=== PATIENT | female | born 1945 | race African-American/Black ===

== ENCOUNTER 2016-09-17 12:34 | Observation (INO) | payer OTHER, MEDICAID ==
--- NOTE | 2016-09-17 13:42 | DR.H&P ---
H&P - History & Physical for Day of: H&P Date: 09/17/16 - Chief Complaint Chief Complaint: MASS IN RIGHT GROIN - Allergies Allergies/Adverse Reactions: Allergies Allergy/AdvReac Type Severity Reaction Status Date / Time No Known Drug Allergy Allergy Verified 08/04/12 14:25 - History of Present Illness History of Present Illness: 71BF DIRECT ADMIT FROM DR WILBURN OFFICE WITH CO RIGHT LOWER ABD/GROIN MASS THE SIZE OF MELON THAT IS FIRM TENDER. PT STATES MASS HAS GOTTEN MUCH LARGER OVER LAST FEW WEEKS AND SHE HAS NOT REVEALED TO MD OR FAMILY UNTIL TODAY. PT IS MORBIDLY OBESE WITH PMH OF HTN, OA, DM, CHF, COPD. PLAN TO ADMIT FOR LABS, CT ABD PELVIS, UA EKG CHEST XRAY - Past Medical History Past Medical History: Arthritis, COPD, GERD, Hypertension - Family History Family Medical History: Cancer, Hypertension - Social History Does patient currently use any type of tobacco product: No Have you used tobacco products in the last 12 months: No Type of Tobacco Use: None Does any household member use tobacco: No Alcohol Use: None Drug Use: None - Review of Systems Constitutional: Weakness ENT: No Symptoms Reported Respiratory: SOB with Excertion Cardiovascular: Edema Gastrointestinal: Abdominal Pain, Other (RIGHT INGUINAL MASS) Musculoskeletal: Back Pain, Leg Pain Skin: No Symptoms Reported Neurological: No Symptoms Reported - Physical Exam Vital Signs: Blood Pressure [Right Arm] 139/83 Blood Pressure [Left Arm] 133/86 Blood Pressure 141/90 Oriented: Normal Eyes: Normal Ear: Normal Nose: Normal Throat: Normal Respiratory: RLL Diminished, LLL Diminished Cardiovascular: Normal : Normal Auscultation: Bowel Sounds: Normal Palpation: Other (RIGHT INGUINAL MASS FIRM, ~15CM WIDTH) Tenderness: RLQ Skin: Decreased Turgur Musculoskeletal: Knee, Back:Lumbar, Motor Deficit (BILATERAL LOWER EXTREMITY WEAKNESS) Affect: Anxious Speech Pattern: Clear, Appropriate - Assessment/Plan (1) Mass of right inguinal region Status: Acute Plan: ADMIT, ADMISSION LABS CBC CMP UA/UC, BLOOD CULTURES. CXR, CT ABD PELVIS. EKG, RESUME HOME MEDS (2) GERD (gastroesophageal reflux disease) Qualifiers: Esophagitis presence: E Status: Acute (3) Arthritis Status: Acute (4) Hypertension Qualifiers: Hypertension type: H Status: Chronic
[2016-09-17] MEDS: NS 1000 ML 1,000 ML IV SCH (15:57)
[2016-09-17 16:11] LABS: BASOPHILS % (AUTO) 0.9 % (0.2-1.0); EOSINOPHILS # (AUTO) 0.1 x10^3/uL (0.0-0.2); EOSINOPHILS % (AUTO) 2.2 % (0.9-2.9); HEMATOCRIT 37.9 % (36.0-47.0); HEMOGLOBIN 13.2 g/dL (12.0-16.0); LYMPHOCYTES # (AUTO) 1.4 X10^3/uL (1.3-2.9); LYMPHOCYTES % (AUTO) 29.5 % (21.0-51.0); MEAN CORPUSCULAR HEMOGLOBIN 30.2 pg (27.0-34.0); MEAN CORPUSCULAR HGB CONC 34.8 g/dL (33.0-35.0); MEAN CORPUSCULAR VOLUME 86.7 fL (80.0-100.0); MONOCYTES # (AUTO) 0.4 x10^3/uL (0.3-0.8); MONOCYTES % (AUTO) 8.9 % (0.0-13.0); NEUTROPHILS # (AUTO) 2.8 x10^3/uL (2.2-4.8); NEUTROPHILS % (AUTO) 58.5 % (42.0-75.0); PLATELET COUNT 229 X10^3/uL (150.0-450.0); RED BLOOD COUNT 4.38 X10^6/uL (3.5-5.4); RED CELL DISTRIBUTION WIDTH 14.1 % (11.6-16.5); WHITE BLOOD COUNT 4.8 X10^3/uL (3.6-10.0)
[2016-09-17 16:26] LABS: ALANINE AMINOTRANSFERASE 19 Units/L (12-78); ALBUMIN 3.4 g/dL (3.4-5.0); ALKALINE PHOSPHATASE 84 Units/L (46-116); ASPARTATE AMINO TRANSFERASE 18 Units/L (15-37); BLOOD UREA NITROGEN 20 mg/dL (7-18); CALCIUM 8.9 mg/dL (8.5-10.1); CARBON DIOXIDE 30.1 mmol/L (21-32); CHLORIDE 105 mmol/L (98-107); GLUCOSE 88 mg/dL (65-99); SODIUM 144 mmol/L (136-145); TOTAL PROTEIN 8.3 g/dL (6.4-8.2); eGFR BLACK RACES 41 (>60); eGFR NON BLACK RACES 34 (>60)
[2016-09-17] MEDS ORDERED: K-DUR TAB 20 MEQ PO PRN (17:20)
[2016-09-17] MEDS ORDERED: POTASSIUM CHLORIDE LIQ 20 MEQ UDC PO PRN (17:20)
[2016-09-17] MEDS ORDERED: K-LYTE EFFERVESCENT PO PRN (17:20)
--- NOTE | 2016-09-17 21:55 | CT ---
CT ABDOMEN AND PELVIS WITH ORAL CONTRAST CLINICAL HISTORY: 71-year-old female with complaints of right groin mass. COMPARISON: CT abdomen and pelvis August 04, 2012. TECHNIQUE: Multiple axial CT images of the abdomen and pelvis were obtained following the administra tion of oral contrast. No intravenous contrast was administered. The images were reformatted in th e sagittal and coronal planes. FINDINGS: Note: There is significant degradation of the study secondary to beam hardening and streak artifact due to patient's extremely large body habitus (morbidly obese, greater than 4 lb). Additionally, pat ient was unable to remain still during the scan. The lung bases are clear without pulmonary nodules, masses, or pleural fluid collections. The infer ior imaged heart is normal in size and there is no pericardial effusion. Redemonstration of large complex cystic lesion within the dome of the right lobe of the liver now me asuring 8.1 x 7.4 cm in greatest axial dimensions. Cholelithiasis with no gross evidence of cholecys titis pancreas and spleen appear unremarkable. The adrenal glands and kidneys are normal in appearance for a study without IV contrast. The ureter s run in an unobstructed course to a well distended urinary bladder. The uterus is anteverted and normal in size. The ovaries, vagina and perineum are within normal garcia its. Oral contrast reaches the distal ileum. The bowel is without obstruction or gross inflammation and t here is no gross free fluid or free air within the peritoneal cavity. Appendix is normal. There are no pathologically enlarged lymph nodes in the abdomen or pelvis. The osseous structures are intact without fracture or malalignment. Anterior thigh is not imaged. Significant degenerative change of the lower lumbar spine from L4-S1. IMPRESSION: 1. Significant study degradation secondary to patient body habitus and motion. 2. No imaging of anterior thigh to assess for questionable mass. 3. Cholelithiasis without gross CT evidence of cholecystitis. 4. Normal appearing appendix grossly. 5. No gross acute intra-abdominal or intrapelvic process. Reported By:
--- NOTE | 2016-09-17 22:06 | RAD ---
EXAM: Chest X-ray INDICATION: CHF COMPARISION: Prior exam from October 28, 2013 TECHNIQUE: Single view FINDINGS: There is parenchymal consolidation in the left lung base and right parahilar region.. No pleural eff usion or pneumothorax. The cardiac silhouette is mildly enlarged and there central vascular congesti on. The regional skeleton is intact. IMPRESSION: There is mild cardiomegaly and central vascular congestion. Areas of consolidation are seen in the r ight parahilar lung parenchyma and in the left lung base. Followup exam is recommended to ensure res olution. Reported By:
[2016-09-17] MEDS: MILK OF MAGNESIA PO SCH (22:16)
[2016-09-17] MEDS: COLACE CAP 100 MG PO SCH (22:16)
[2016-09-17] MEDS ORDERED: NORCO 5/325 MG TAB PO PRN (23:23)
[2016-09-18 00:16] VITALS: BMI 54.6
[2016-09-18] MEDS ORDERED: ZOFRAN INJ 4 MG VIAL IVP PRN (03:42)
[2016-09-18 04:35] LABS: BILIRUBIN,URINE 1+ (NEGATIVE); BLOOD/HEMOGLOBIN,URINE 1+ (NEGATIVE); GLUCOSE, URINE NEGATIVE (NEGATIVE); KETONES,URINE NEGATIVE (NEGATIVE); LEUKOCYTE ESTERASE ,URINE 1+ (NEGATIVE); NITRITES,URINE POSITIVE (NEGATIVE); PROTEIN,URINE 2+ (NEGATIVE); UROBILINOGEN,URINE 3+ (NORMAL)
[2016-09-18 04:52] LABS: APPEARANCE,URINE HAZY (CLEAR); COLOR,URINE AMBER (YELLOW); RBC,URINE NONE SEEN /HPF (NEGATIVE)
[2016-09-18 04:53] LABS: BACTERIA,URINE 1+ /HPF (NEGATIVE); MUCUS,URINE MANY /HPF (NEGATIVE); SQUAMOUS EPITHELIAL CELL,UR MODERATE /HPF (NEGATIVE)
[2016-09-18] MEDS ORDERED: PHENERGAN INJ 25 MG IV PRN (07:38)
[2016-09-18] MEDS: NS 1000 ML 1,000 ML IV SCH ×2 (08:22→21:36)
--- NOTE | 2016-09-18 13:22 | US ---
HISTORY: Mass right inner thigh and x2 years no pain. Study: Targeted ultrasound of the right thigh. Comparison: None. Findings: Targeted ultrasound of the right inner thigh at the patient's area of concern demonstrates marked so ft tissue edema. No abnormal mass is appreciated. No pathologic lymphadenopathy. The visualized vasc ulature appears normal. IMPRESSION: Marked soft tissue edema without obvious mass. Reported By:
[2016-09-18] MEDS: MILK OF MAGNESIA PO SCH (21:33)
[2016-09-18] MEDS: COLACE CAP 100 MG PO SCH (21:33)
[2016-09-19 05:43] LABS: BASOPHILS % (AUTO) 0.7 % (0.2-1.0); EOSINOPHILS # (AUTO) 0.2 x10^3/uL (0.0-0.2); EOSINOPHILS % (AUTO) 4.4 % (0.9-2.9); HEMATOCRIT 34.7 % (36.0-47.0); LYMPHOCYTES # (AUTO) 1.1 X10^3/uL (1.3-2.9); LYMPHOCYTES % (AUTO) 25.6 % (21.0-51.0); MEAN CORPUSCULAR HEMOGLOBIN 30.1 pg (27.0-34.0); MEAN CORPUSCULAR HGB CONC 34.7 g/dL (33.0-35.0); MEAN CORPUSCULAR VOLUME 86.9 fL (80.0-100.0); MEAN PLATELET VOLUME 9.3 fL (7.4-11.0); MONOCYTES # (AUTO) 0.4 x10^3/uL (0.3-0.8); MONOCYTES % (AUTO) 8.5 % (0.0-13.0); NEUTROPHILS # (AUTO) 2.5 x10^3/uL (2.2-4.8); NEUTROPHILS % (AUTO) 60.8 % (42.0-75.0); PLATELET COUNT 192 X10^3/uL (150.0-450.0); RED BLOOD COUNT 3.99 X10^6/uL (3.5-5.4); RED CELL DISTRIBUTION WIDTH 14.2 % (11.6-16.5); WHITE BLOOD COUNT 4.1 X10^3/uL (3.6-10.0)
[2016-09-19 05:51] LABS: BLOOD UREA NITROGEN 24 mg/dL (7-18); CALCIUM 8.7 mg/dL (8.5-10.1); CARBON DIOXIDE 27.7 mmol/L (21-32); CHLORIDE 109 mmol/L (98-107); CREATININE 1.44 mg/dL (0.55-1.02); GLUCOSE 91 mg/dL (65-99); SODIUM 144 mmol/L (136-145); eGFR BLACK RACES 46 (>60); eGFR NON BLACK RACES 38 (>60)
[2016-09-19] MEDS: NS 1000 ML 1,000 ML IV SCH (10:28)
[2016-09-19] MEDS ORDERED: NORCO 10/325 TAB PO PRN (10:58)
[2016-09-19] MEDS ORDERED: PHENERGAN TAB 25 MG PO PRN (10:58)
[2016-09-19] MEDS ORDERED: PATIENT'S HOME MEDICATION (Sertraline Hcl [Zoloft 25 Mg] 25 MG) PO SCH (11:00)
[2016-09-19] MEDS ORDERED: OMEPRAZOLE 10 MG PO SCH (11:00)
[2016-09-19 12:25] VITALS: BP 125/61
[2016-09-20] MEDS ORDERED: ZOLOFT PO SCH (09:00)
[2016-09-20] MEDS ORDERED: HYZAAR 50/12.5 MG PO SCH (09:00)
[2016-09-20] MEDS ORDERED: PriLOSEC PO SCH (09:00)
== END 2016-09-19 16:00 | disposition home or self-care (01) ==
LOC: UNDOADMOB 12:34 → MED/SURG 12:34
PROVIDERS: ADMIT Internal Medicine; ATTEND Internal Medicine
DX: R22.41 Localized swelling, mass and lump, right lower limb (principal); K80.80 Other cholelithiasis without obstruction; I10 Essential (primary) hypertension; E11.9 Type 2 diabetes mellitus without complications; I50.9 Heart failure, unspecified; J44.9 Chronic obstructive pulmonary disease, unspecified; K21.9 Gastro-esophageal reflux disease without esophagitis; M13.89 Other specified arthritis, multiple sites; I51.7 Cardiomegaly; R94.31 Abnormal electrocardiogram [ECG] [EKG]; R60.0 Localized edema; B96.29 Other Escherichia coli [E. coli] as the cause of diseases classified elsewhere; R94.8 Abnormal results of function studies of other organs and systems; E87.6 Hypokalemia
CPT/HCPCS: 36415; 71010; 74176; 76881; 80048; 80053; 81001; 84132; 85025; 87040; 87086; 87088; 87186; 93005; 93010; A4222; G0378; J2405; J2550

== ENCOUNTER 2017-06-02 11:51 | Inpatient (IN) | payer OTHER, MEDICAID ==
[2017-06-02 14:20] LABS: BASOPHILS % (AUTO) 0.5 % (0.2-1.0); EOSINOPHILS % (AUTO) 0.8 % (0.9-2.9); HEMATOCRIT 38.1 % (36.0-47.0); LYMPHOCYTES # (AUTO) 0.7 X10^3/uL (1.3-2.9); LYMPHOCYTES % (AUTO) 15.8 % (21.0-51.0); MEAN CORPUSCULAR HEMOGLOBIN 29.8 pg (27.0-34.0); MEAN CORPUSCULAR HGB CONC 34.2 g/dL (33.0-35.0); MEAN CORPUSCULAR VOLUME 87.3 fL (80.0-100.0); MEAN PLATELET VOLUME 9.4 fL (7.4-11.0); MONOCYTES # (AUTO) 0.5 x10^3/uL (0.3-0.8); MONOCYTES % (AUTO) 11.4 % (0.0-13.0); NEUTROPHILS # (AUTO) 3.2 x10^3/uL (2.2-4.8); NEUTROPHILS % (AUTO) 71.5 % (42.0-75.0); PLATELET COUNT 218 X10^3/uL (150.0-450.0); RED BLOOD COUNT 4.36 X10^6/uL (3.5-5.4); RED CELL DISTRIBUTION WIDTH 15.6 % (11.6-16.5); WHITE BLOOD COUNT 4.5 X10^3/uL (3.6-10.0)
[2017-06-02 14:37] LABS: BLOOD UREA NITROGEN 17 mg/dL (7-18); CALCIUM 8.6 mg/dL (8.5-10.1); CARBON DIOXIDE 27.8 mmol/L (21-32); CHLORIDE 104 mmol/L (98-107); CREATININE 1.24 mg/dL (0.55-1.02); SODIUM 143 mmol/L (136-145); TROPONIN I < 0.02 ng/mL (0-1.5); eGFR BLACK RACES 55 (>60); eGFR NON BLACK RACES 45 (>60)
[2017-06-02 14:42] LABS: ALANINE AMINOTRANSFERASE 13 Units/L (12-78); ALKALINE PHOSPHATASE 82 Units/L (46-116); ASPARTATE AMINO TRANSFERASE 15 Units/L (15-37); CKMB % 0.8 % (<4); COR CA(FOR HYPOALB) 9.4 mg/dL (8.5-10.1); CREATINE KINASE 125 Units/L (26-192); CREATINE KINASE MB < 1.0 ng/mL (0-4.0); MAGNESIUM 1.6 mg/dL (1.7-2.9); TOTAL PROTEIN 7.6 g/dL (6.4-8.2)
[2017-06-02] MEDS ORDERED: HEPARIN SODIUM INJ 5000 UNITS ONE (15:07)
[2017-06-02] MEDS: CORDARONE TAB 200 MG PO SCH ×2 (15:17→18:09)
[2017-06-02] MEDS: HEPARIN SODIUM IN D5W 25,000 UNITS/500 ML BAG IV PRN (15:19)
[2017-06-02] MEDS: COREG TAB 6.25 MG PO SCH ×2 (15:20→20:16)
--- NOTE | 2017-06-02 16:05 | RAD ---
AP Chest Indication: New onset atrial fibrillation Comparison: 09/17/16 Findings: Trachea is midline. Heart size enlarged. There is increased prominence of the central pulmonary vascu lature and interstitium consistent mild interstitial edema. No dense airspace consolidation, large ef fusion or pneumothorax . No acute osseous abnormality. IMPRESSION: Cardiomegaly with increased interstitial opacities most consistent with interstitial edema/CHF. Reported By:
[2017-06-02 17:03] VITALS: BMI 56.5
[2017-06-02 17:36] LABS: BILIRUBIN,URINE 1+ (NEGATIVE); BLOOD/HEMOGLOBIN,URINE NEGATIVE (NEGATIVE); GLUCOSE, URINE NEGATIVE (NEGATIVE); KETONES,URINE NEGATIVE (NEGATIVE); LEUKOCYTE ESTERASE ,URINE 2+ (NEGATIVE); NITRITES,URINE NEGATIVE (NEGATIVE); PROTEIN,URINE NEGATIVE (NEGATIVE); UROBILINOGEN,URINE 3+ (NORMAL)
[2017-06-02 17:41] LABS: APPEARANCE,URINE HAZY (CLEAR); BACTERIA,URINE 1+ /HPF (NEGATIVE); COLOR,URINE YELLOW (YELLOW); RBC,URINE 0-2 /HPF (NONE SEEN); SQUAMOUS EPITHELIAL CELL,UR FEW /HPF (NEGATIVE)
[2017-06-02] MEDS ORDERED: K-RIDER 10 MEQ/NS 100 ML 10 MEQ/100 ML BAG IV PRN (18:03)
[2017-06-02] MEDS ORDERED: MAGNESIUM SULFATE 1 GM/100 mL PREMIX 1 GM/100 ML BAG IV PRN (18:03)
[2017-06-02] MEDS ORDERED: POTASSIUM CHL 60 MEQ/NS 0.45% 500 ML IV PRN (18:03)
[2017-06-02] MEDS ORDERED: MAG-OX TAB PO PRN (18:03)
[2017-06-02] MEDS ORDERED: POTASSIUM CHLORIDE LIQ 20 MEQ UDC PO PRN (18:03)
[2017-06-02] MEDS ORDERED: POTASSIUM CHL 40 MEQ/NS 0.45% 500 ML IV PRN (18:03)
[2017-06-02] MEDS ORDERED: K-LYTE EFFERVESCENT PO PRN (18:03)
--- NOTE | 2017-06-02 18:41 | CT ---
CTA chest for pulmonary thromboembolism protocol. Indication: New onset atrial fibrillation. Technique: 3 mm axial images with coronal and sagittal reformatted images of the thorax after IV cont rast administration. Axial, coronal and sagittal MIPS imaging of the pulmonary arteries was performed . Findings: Thyroid gland is unremarkable. Heart size is mildly enlarged without pericardial effusion. No definit e filling defect within the left atrium to suggest thrombus. Mild coronary artery atherosclerotic dis ease. Thoracic aorta is normal in caliber and contour with mild calcified atherosclerotic disease. Th e pulmonary artery is dilated. There is no filling defect identified within the pulmonary arteries ho wever states subsegmental pulmonary arteries are not adequately opacified for exclusion of PTE. There is mild central peribronchial thickening and very mild interstitial opacities centrally likely representing mild bronchitis and/or interstitial edema for which clinical correlation is needed. Kandice ining lungs are clear. No pleural effusion or pneumothorax. Central airways are clear. No acute osseo us abnormality. Large hypoattenuating lesion within the right hepatic dome unchanged from prior exami nation likely representing a cyst. Impression: Cardiomegaly with mild central peribronchial thickening and interstitial opacities represents either mild interstitial edema or bronchitis for which clinical correlation is needed. No bronchopneumonia p leural effusion. Pulmonary arterial hypertension, no PTE identified however subsegmental branches of the pulmonary art eries are not adequately opacified for exclusion. Stable large round hypoattenuating lesion within the right hepatic dome is most consistent with a cys t. Reported By:
[2017-06-02 20:11] LABS: CKMB % 0.9 % (<4); CREATINE KINASE 118 Units/L (26-192); CREATINE KINASE MB < 1.0 ng/mL (0-4.0); TROPONIN I < 0.02 ng/mL (0-1.5)
[2017-06-02] MEDS ORDERED: NS 500 ML IV 500 ML IV ONE (20:56)
[2017-06-02] MEDS: NORCO 10/325 TAB PO PRN (21:23)
[2017-06-03 02:50] LABS: CKMB % 0.9 % (<4); CREATINE KINASE 106 Units/L (26-192); CREATINE KINASE MB < 1.0 ng/mL (0-4.0); TROPONIN I < 0.02 ng/mL (0-1.5)
[2017-06-03] MEDS: CORDARONE TAB 200 MG PO SCH ×4 (06:01→19:07)
[2017-06-03] MEDS: HEPARIN SODIUM IN D5W 25,000 UNITS/500 ML BAG IV PRN (06:03)
[2017-06-03 06:18] LABS: BASOPHILS % (AUTO) 0.8 % (0.2-1.0); EOSINOPHILS # (AUTO) 0.1 x10^3/uL (0.0-0.2); EOSINOPHILS % (AUTO) 2.9 % (0.9-2.9); HEMATOCRIT 34.8 % (36.0-47.0); HEMOGLOBIN 12.1 g/dL (12.0-16.0); LYMPHOCYTES # (AUTO) 1.3 X10^3/uL (1.3-2.9); LYMPHOCYTES % (AUTO) 33.7 % (21.0-51.0); MEAN CORPUSCULAR HEMOGLOBIN 30.1 pg (27.0-34.0); MEAN CORPUSCULAR HGB CONC 34.6 g/dL (33.0-35.0); MEAN CORPUSCULAR VOLUME 86.9 fL (80.0-100.0); MEAN PLATELET VOLUME 10.4 fL (7.4-11.0); MONOCYTES # (AUTO) 0.4 x10^3/uL (0.3-0.8); MONOCYTES % (AUTO) 11.9 % (0.0-13.0); NEUTROPHILS # (AUTO) 1.9 x10^3/uL (2.2-4.8); NEUTROPHILS % (AUTO) 50.7 % (42.0-75.0); PLATELET COUNT 161 X10^3/uL (150.0-450.0); RED BLOOD COUNT 4.01 X10^6/uL (3.5-5.4); RED CELL DISTRIBUTION WIDTH 15.6 % (11.6-16.5); WHITE BLOOD COUNT 3.7 X10^3/uL (3.6-10.0)
[2017-06-03 06:41] LABS: ALANINE AMINOTRANSFERASE 14 Units/L (12-78); ALBUMIN 2.6 g/dL (3.4-5.0); ALKALINE PHOSPHATASE 78 Units/L (46-116); ASPARTATE AMINO TRANSFERASE 15 Units/L (15-37); BLOOD UREA NITROGEN 18 mg/dL (7-18); CALCIUM 8.1 mg/dL (8.5-10.1); CARBON DIOXIDE 26.6 mmol/L (21-32); CHLORIDE 104 mmol/L (98-107); CHOLESTEROL 113 mg/dL (0-200); COR CA(FOR HYPOALB) 9.2 mg/dL (8.5-10.1); CREATININE 1.24 mg/dL (0.55-1.02); HDL CHOLESTEROL 38 mg/dL (40-60); SODIUM 140 mmol/L (136-145); TOTAL PROTEIN 6.9 g/dL (6.4-8.2); TRIGLYCERIDES 51 mg/dL (0-150); eGFR BLACK RACES 55 (>60); eGFR NON BLACK RACES 45 (>60)
[2017-06-03] MEDS: COREG TAB 6.25 MG PO SCH ×2 (08:21→20:47)
[2017-06-03] MEDS ORDERED: PREVNAR 13 IM ONE (09:04)
[2017-06-03] MEDS ORDERED: FLUVIRIN IM ONE (09:04)
--- NOTE | 2017-06-03 13:24 | DR.H&P ---
H&P - History & Physical for Day of: H&P Date: 06/03/17 - Chief Complaint Chief Complaint: weakness, palpitations, shortness of breath - Allergies Allergies/Adverse Reactions: Allergies Allergy/AdvReac Type Severity Reaction Status Date / Time No Known Drug Allergies Allergy Verified 06/02/17 20:23 [NKDA] - History of Present Illness History of Present Illness: 72 BF DIRECT ADMIT FROM DR WILBURN OFFICE WITH CO GENERALIZED WEAKNESS, "FEELS BAD", SHORTNESS OF BREATH, NAUSEA. PT HAD IRREGULAR HEART, W/O HX OF AFIB. PT EKG REVEALED NEW ONSET AT FIB WITH RATE 130 'S. PT HAD PMH OF MO, HTN, OA, CAD. PT ADMITTED FOR EVALUATION AND TREATMENT OF NEW ONSET AFIB WITH RVR AND SOB. - Past Medical History Past Medical History: Anxiety, Arthritis, COPD, GERD, Hypertension - Family History Family Medical History: Coronary Artery Disease, Hypertension - Social History Does patient currently use any type of tobacco product: No Have you used tobacco products in the last 12 months: No Type of Tobacco Use: None Alcohol Use: None Drug Use: None - Medications Home Medications: Atorvastatin Calcium 10 mg PO DAILY 06/02/17 [History Confirmed 06/02/17] Sertraline HCl [Zoloft] 50 mg PO DAILY 06/02/17 [History Confirmed 06/02/17] - Review of Systems Constitutional: Weakness, Malaise Eyes: No Symptoms Reported ENT: No Symptoms Reported Respiratory: Shortness of Breath Cardiovascular: Palpitations Gastrointestinal: Nausea Genitourinary: No Symptoms Reported Musculoskeletal: Back Pain, Leg Pain Skin: No Symptoms Reported Neurological: Weakness - Physical Exam Vital Signs: Temperature 97.9 F Pulse Rate [Apical] 86 Respiratory Rate 13 Blood Pressure [Right Arm] 136/85 Blood Pressure [Left Arm] 133/86 Blood Pressure 125/61 O2 Sat by Pulse Oximetry 98 Oriented: Normal Eyes: Normal Ear: Normal Nose: Normal Throat: Normal Respiratory: RLL Diminished, LLL Diminished Cardiovascular: Irregular : Normal Auscultation: Bowel Sounds: Normal Palpation: Normal Tenderness: Normal Skin: Decreased Turgur Musculoskeletal: Right, Left, Knee, Back:Thoracic, Back:Lumbar Psychiatric: Anxiety Speech Pattern: Clear, Appropriate - Assessment/Plan (1) New onset a-fib Status: Acute Plan: ADMIT ICU, SERIAL CARDIAC ENZYMES AND EKG'S. BP CONTROL, HEPARIN DRIP, ANTI- Arrhythmia. SUPPLEMENTAL O2. VERIFY HOME MEDS (2) Hypertension Status: Acute (3) CHF (congestive heart failure) Status: Acute (4) Shortness of breath Status: Acute
[2017-06-03] MEDS ORDERED: XOPENEX 1.25 MG/3 ML NEBULE NEB PRN (14:30)
[2017-06-03] MEDS ORDERED: HEPARIN SODIUM INJ 5000 UNITS IVP ONE (22:42)
[2017-06-03] MEDS ORDERED: MAALOX or MYLANTA PO PRN (22:47)
[2017-06-04] MEDS: HEPARIN SODIUM IN D5W 25,000 UNITS/500 ML BAG IV PRN (00:52)
[2017-06-04 07:01] LABS: BASOPHILS % (AUTO) 0.7 % (0.2-1.0); EOSINOPHILS # (AUTO) 0.2 x10^3/uL (0.0-0.2); EOSINOPHILS % (AUTO) 3.7 % (0.9-2.9); HEMATOCRIT 36.3 % (36.0-47.0); HEMOGLOBIN 12.7 g/dL (12.0-16.0); LYMPHOCYTES # (AUTO) 1.4 X10^3/uL (1.3-2.9); LYMPHOCYTES % (AUTO) 29.9 % (21.0-51.0); MEAN CORPUSCULAR HEMOGLOBIN 30.2 pg (27.0-34.0); MEAN CORPUSCULAR HGB CONC 34.9 g/dL (33.0-35.0); MEAN CORPUSCULAR VOLUME 86.7 fL (80.0-100.0); MEAN PLATELET VOLUME 10.4 fL (7.4-11.0); MONOCYTES # (AUTO) 0.6 x10^3/uL (0.3-0.8); MONOCYTES % (AUTO) 13.5 % (0.0-13.0); NEUTROPHILS # (AUTO) 2.4 x10^3/uL (2.2-4.8); NEUTROPHILS % (AUTO) 52.2 % (42.0-75.0); PLATELET COUNT 195 X10^3/uL (150.0-450.0); RED BLOOD COUNT 4.18 X10^6/uL (3.5-5.4); RED CELL DISTRIBUTION WIDTH 15.3 % (11.6-16.5); WHITE BLOOD COUNT 4.6 X10^3/uL (3.6-10.0)
[2017-06-04 07:17] LABS: ALANINE AMINOTRANSFERASE 12 Units/L (12-78); ALBUMIN 2.9 g/dL (3.4-5.0); ALKALINE PHOSPHATASE 80 Units/L (46-116); ASPARTATE AMINO TRANSFERASE 15 Units/L (15-37); BLOOD UREA NITROGEN 20 mg/dL (7-18); CARBON DIOXIDE 28.3 mmol/L (21-32); CHLORIDE 102 mmol/L (98-107); COR CA(FOR HYPOALB) 8.9 mg/dL (8.5-10.1); SODIUM 140 mmol/L (136-145); TOTAL PROTEIN 7.4 g/dL (6.4-8.2); eGFR BLACK RACES 52 (>60); eGFR NON BLACK RACES 43 (>60)
[2017-06-04] MEDS: COREG TAB 6.25 MG PO SCH (08:35)
[2017-06-04] MEDS: CORDARONE TAB 200 MG PO SCH (08:36)
[2017-06-04] MEDS: NORCO 10/325 TAB PO PRN (13:57)
[2017-06-04 15:21] VITALS: BP 116/75
== END 2017-06-04 15:55 | disposition short-term general hospital (02) | DRG 310 ==
LOC: ICU 11:51
PROVIDERS: ADMIT Internal Medicine; ATTEND Internal Medicine
DX: I48.91 Unspecified atrial fibrillation (principal); R07.89 Other chest pain; R06.02 Shortness of breath; K21.9 Gastro-esophageal reflux disease without esophagitis; I10 Essential (primary) hypertension; I25.10 Atherosclerotic heart disease of native coronary artery without angina pectoris; I50.9 Heart failure, unspecified; E78.2 Mixed hyperlipidemia; M19.90 Unspecified osteoarthritis, unspecified site; E66.8 Other obesity
CPT/HCPCS: 36415; 71045; 71275; 80053; 80061; 81001; 82550; 82553; 83735; 84484; 85025; 85610; 85730; 93005; 93010; A4216; A4222; J1644

== ENCOUNTER → 2017-07-26 | Outpatient (CLI) | payer OTHER, MEDICAID ==
--- NOTE | 2017-07-26 15:04 | RAD ---
HISTORY: Osteoarthritis of the knee Study: Right knee: Three views Comparison: None Findings: Moderate to moderately severe joint space narrowing is noted in the medial compartment with mild late rally. Mild spurring is noted medially and laterally. Moderately severe patellofemoral joint degene ration is noted. No acute bony or joint abnormalities are identified. IMPRESSION: 1. Degenerative change in the right knee as described above. 2. No acute bony abnormalities are identified. Reported By:
--- NOTE | 2017-07-26 15:06 | RAD ---
HISTORY: Osteoarthritis of knee Study: Left knee: Three views Comparison: None. Findings: Moderate joint space narrowing is noted in the medial compartment. Mild sclerosis is noted involving the medial femoral condyle and medial tibial plateau. Small osteochondral defects are present invol ving the medial compartment. Minute joint space narrowing is noted laterally. Lygm-[id number]-flplzowh spur ring is noted medially with mild laterally. Moderate to moderately severe patellofemoral joint degen eration is noted IMPRESSION: 1. Degenerative change in the left knee as described above. 2. No acute bony abnormalities are identified. Reported By:
--- NOTE | 2017-07-26 15:08 | RAD ---
HISTORY: Low back pain Study: AP and lateral lumbar spine Comparison: None Findings: Five lumbar type vertebra present. [id number] osteopenia is present. Mild facet arthropathy i s noted throughout with moderate to moderately severe at L4/L5 and L5/S1. The lateral view demonstra lorenza 4-5 mm of spondylolisthesis of L4 on L5 and L5 on S1. Vacuum disc formation and moderate disc sp richard narrowing is noted at L4/L5 with moderate to moderately severe disc space narrowing at L5/S1. Mi nimal anterior spurring is noted at a few levels. IMPRESSION: 1. Lumbar spondylosis as described above. 2. No acute bony abnormalities are identified. Reported By:
== END ==
LOC: RAD 12:55
PROVIDERS: ATTEND Internal Medicine
DX: M51.36 Other intervertebral disc degeneration, lumbar region (principal); M17.0 Bilateral primary osteoarthritis of knee; M47.896 Other spondylosis, lumbar region
CPT/HCPCS: 72100; 73560

== ENCOUNTER 2019-12-03 09:49 | Observation (INO) ==
[2019-12-03 10:13] VITALS: BMI 49.9
[2019-12-03 10:28] LABS: BASOPHILS % (AUTO) 0.2 % (0.2-1.0); EOSINOPHILS % (AUTO) 0.5 % (0.9-2.9); HEMATOCRIT 38.7 % (36.0-47.0); HEMOGLOBIN 13.3 g/dL (12.0-16.0); LYMPHOCYTES # (AUTO) 0.4 X10^3/uL (1.3-2.9); LYMPHOCYTES % (AUTO) 6.3 % (21.0-51.0); MEAN CORPUSCULAR HGB CONC 34.3 g/dL (33.0-35.0); MEAN CORPUSCULAR VOLUME 90.5 fL (80.0-100.0); MEAN PLATELET VOLUME 8.7 fL (7.4-11.0); MONOCYTES # (AUTO) 0.1 x10^3/uL (0.3-0.8); MONOCYTES % (AUTO) 1.3 % (0.0-13.0); NEUTROPHILS # (AUTO) 5.2 x10^3/uL (2.2-4.8); NEUTROPHILS % (AUTO) 91.7 % (42.0-75.0); PLATELET COUNT 224 X10^3/uL (150.0-450.0); RED BLOOD COUNT 4.28 X10^6/uL (3.5-5.4); RED CELL DISTRIBUTION WIDTH 14.7 % (11.6-16.5); WHITE BLOOD COUNT 5.6 X10^3/uL (3.6-10.0)
--- NOTE | 2019-12-03 10:32 | ED.ABDFE ---
HPI Time Seen Time Seen by Provider: 12/03/19 10:00 HPI Comment HPI Comment: PATIENT IS 74 YR OLD FEMALE IN ER WITH ABDOMINAL PAIN AND CONSTIPATION FOR SEVERAL HOURS. MOM DID NOT HELP CONSTIPATION. SHARP ABDOMINAL PAIN 6/10 RADIATING TO THE BACK. PATIENT IS NAUSEATED AND VOMITING. NO FEVER OR DYSURIA. SYMPTOMS GETTING WORSE. SMALL HARD BP TODAY. Complaint Doctors Chief Complaint Comments: ABDOMINAL PAIN, SHARP, 6/10 RADIATING TO THE BACK AND CONSTIPATION COVID-19 Coronavirus risk:travel/contact w/high risk person: No Has patient experienced Coronavirus symptoms: No Reviewed Nurses Notes Review: Yes Source History Provided: Parent Mode of arrival Mode of Arrival: EMS Timing Came on: Suddenly Duration Since Onset: Constant Location Location: Diffuse Severity Severity: Moderate Quality Quality: Sharp Context History of: None Modifying factors Worsening Factors: Movement Improving Factors: Lying Still Associated signs and symptoms Associated Signs and Symptoms: Nausea and Constipation PMH PMH Past Medical History: Anxiety, Arthritis, COPD, GERD and Hypertension Past Surgical History: No Family History Family Medical History: Coronary Artery Disease and Hypertension Social History Do you use any recreational Drugs:: No ROS Review of Systems Constitutional: No Symptoms Reported, See HPI, Weakness and Fatigue Eyes: No Symptoms Reported and See HPI; negative Blurred Vision and Diplopia ENTM: No Symptoms Reported; negative Nose Discharge and Nose Congestion Respiratoy: No Symptoms Reported and See HPI; negative Moist Cough, Short of Breath and Wheezing Cardiovascular: No Symptoms Reported and See HPI; negative Chest Pain Gastrointestinal/Abdominal: See HPI, Abdominal Pain, Constipation, Nausea and Vomiting Genitourinary: See HPI and Other (DECREASE URINE OUTPUT.); negative Dysuria and Hematuria Neurological: See HPI and Weakness; negative Headache and Dizziness Musculoskeletal: See HPI and Back Pain; negative Muscle Pain Integumentary: See HPI and Dryness; negative Change in Color, Rash and Juandice Hematologic/Lymphatic: No Symptoms Reported, See HPI and Easy Bruising; negative Swollen Glands Endocrine: No Symptoms Reported and See HPI; negative Increased Thirst, Increased Urine and Decreased Appetite Psychiatric: No Symptoms Reported and See HPI All Other Systems: Reviewed and Negative PE Vital Signs Vitals: Temperature 97.9 F Pulse Rate [Right Radial] 72 Pulse Rate 77 Respiratory Rate 18 Blood Pressure [Left Arm] 97/64 Blood Pressure 115/73 O2 Sat by Pulse Oximetry 97 General Limitations: No Limitations General Appearance: Alert and In No Apparent Distress Head Head Exam: Normal Inspection and Atraumatic Eyes Eye exam: Normal Appearance and PERRL; negative Scleral Icterus and Conjunctival Injection ENT ENT Exam: Normal Exam, Normal Oropharynx, Normal External Ear Exam and TM's Normal Bilaterally Neck Neck Exam: Normal Inspection and Trachea Midline; negative Tenderness and Lymphadenopathy Chest Chest Inspection: Normal Inspection and Symmetric Chest Wall Rise; negative Tenderness Respiratory Respiratory Exam: Normal Lung Sounds Bilat; negative Accessory Muscle Use, Chest Wall Tenderness and Respiratory Distress Respiratory Exam: Bilateral: Rhonchi and Lower: Rhonchi Cardiovascular Cardiovascular Exam: Regular Rate, Normal Rhythm and Normal Heart Sounds; negative Systolic Murmur and Diastolic Murmur Abdominal Exam Abdominal Exam: Normal Bowel Sounds, Soft and Tenderness Abdominal Tenderness: Diffuse and Moderate Rectal Rectal Exam: Deferred Back Back Exam: Normal Inspection; negative (R) CVA Tenderness and (L) CVA Tenderness Extremeties Extremities Exam: Normal Inspection and Normal Capillary Refill External Exam: Female: Deferred : Speculum Exam (Female): Deferred : Bimanual Exam (female): Deferred Neurologic Neurological Exam: Alert and Oriented X3; negative Motor Sensory Deficit Psychiatric Psychiatric Exam: Normal Affect and Normal Mood Skin Skin Exam: Dry MDM Additional Information Obtained From Additional information provided by: Old Records Differential Diagnosis Differential Diagnosis- Considerations may include:: Bowel Obstruction, Cholcystitis, Cholelethiasis, Constipation, Diverticular disease, Gastritus/PUD, Inflammatory BD, Pancreatitis, Urinary tract infection and Urolithiasis COURSE Treatment Treatment: SEE ORDERS. Consultation Consultation Comments: DISCUSSED PATIENT WITH DR. NOBLE. HE WILL ADMIT PATIENT. DISCUSSED PATIENT WITH DR. MARTINI WELL. HE WILL SEE PATIENT ON THE FLOOR. Education/Counseling Education/Counseling: Patient Educated On: Diagnosis ROR Labs Reviewed Laboratory Results Reviewed?: Yes Result Diagrams: 12/04/19 05:50 12/04/19 05:50 Laboratory: WBC 5.6 X10^3/uL (3.6-10.0) 12/03/19 10:24 RBC 4.28 X10^6/uL (3.5-5.4) 12/03/19 10:24 Hgb 13.3 g/dL (12.0-16.0) 12/03/19 10:24 Hct 38.7 % (36.0-47.0) 12/03/19 10:24 MCV 90.5 fL (80.0-100.0) 12/03/19 10:24 MCH 31.0 pg (27.0-34.0) 12/03/19 10:24 MCHC 34.3 g/dL (33.0-35.0) 12/03/19 10:24 RDW 14.7 % (11.6-16.5) 12/03/19 10:24 Plt Count 224 X10^3/uL (150.0-450.0) 12/03/19 10:24 Plt Count Comment Adequate (ADEQUATE) 12/03/19 10:24 MPV 8.7 fL (7.4-11.0) 12/03/19 10:24 Neut % (Auto) 91.7 % (42.0-75.0) H 12/03/19 10:24 Lymph % (Auto) 6.3 % (21.0-51.0) L 12/03/19 10:24 [place] % (Auto) 1.3 % (0.0-13.0) 12/03/19 10:24 Eos % (Auto) 0.5 % (0.9-2.9) L 12/03/19 10:24 Baso % (Auto) 0.2 % (0.2-1.0) 12/03/19 10:24 Neut # (Auto) 5.2 x10^3/uL (2.2-4.8) H 12/03/19 10:24 Lymph # (Auto) 0.4 X10^3/uL (1.3-2.9) L 12/03/19 10:24 [place] # (Auto) 0.1 x10^3/uL (0.3-0.8) L 12/03/19 10:24 Eos # (Auto) 0.0 x10^3/uL (0.0-0.2) 12/03/19 10:24 Baso # (Auto) 0.0 X10^3/uL (0.0-0.1) 12/03/19 10:24 Absolute Nucleated RBC 0.0 /100WBC 12/03/19 10:24 Total Counted 100 12/03/19 10:24 Neutrophils % (Manual) 89 % (39-76) H 12/03/19 10:24 Band Neutrophils % 1 % (0-10) 12/03/19 10:24 Lymphocytes % (Manual) 9 % (13-43) L 12/03/19 10:24 Monocytes % (Manual) 1 % (4-9) L 12/03/19 10:24 Plt Morphology Comment Normal (NORMAL) 12/03/19 10:24 RBC Morphology Normal (NORMAL) 12/03/19 10:24 Sodium 141 mmol/L (136-145) 12/03/19 10:24 Corrected Sodium 142 mmol/L (136-145) 12/03/19 10:24 Potassium 3.3 mmol/L (3.5-5.1) L 12/03/19 10:24 Chloride 106 mmol/L (98-107) 12/03/19 10:24 Carbon Dioxide 29.0 mmol/L (21-32) 12/03/19 10:24 BUN 29 mg/dL (7-18) H 12/03/19 10:24 Creatinine 1.92 mg/dL (0.55-1.02) H 12/03/19 10:24 Est GFR (MDRD) Af Amer 33 (>60) L 12/03/19 10:24 Est GFR (MDRD) Non-Af 27 (>60) L 12/03/19 10:24 Glucose 143 mg/dL (65-99) H 12/03/19 10:24 Calcium 8.0 mg/dL (8.5-10.1) L 12/03/19 10:24 Corrected Calcium 9.2 mg/dL (8.5-10.1) 12/03/19 10:24 Total Bilirubin 1.30 mg/dL (0.2-1.0) H 12/03/19 10:24 AST 132 Units/L (15-37) H 12/03/19 10:24 ALT 63 Units/L (12-78) 12/03/19 10:24 Alkaline Phosphatase 177 Units/L (46-116) H 12/03/19 10:24 Total Protein 7.0 g/dL (6.4-8.2) 12/03/19 10:24 Albumin 2.5 g/dL (3.4-5.0) L 12/03/19 10:24 Globulin 4.5 g/dL (2.5-4.5) 12/03/19 10:24 Albumin/Globulin Ratio 0.6 Ratio (1.1-2.1) L 12/03/19 10:24 Amylase 25 Units/L (25-115) 12/03/19 10:24 Lipase 58 Units/L (73-393) L 12/03/19 10:24 XRAY XRAY Interpreted by: Radiologist (REPORT NOTED AND DISCUSSED WITH PATIENT.) and Self Opioid Opioid Risk Tool Age (Gurmeet box if 16-45): No History of Preadolescent Sexual Abuse: No Total: 0 Total Score Risk Category: Low Risk Copyright: [facility] predicting aberrant behaviors Diagnosis Discharge Problem: Acute cholecystitis, Hypokalemia, Acute dehydration Nausea & vomiting Qualifiers: Vomiting type: unspecified Vomiting Intractability: non-intractable Qualified Code(s): R11.2 - Nausea with vomiting, unspecified Cholelithiases Qualifiers: Cholelithiasis location: gallbladder Cholecystitis presence: with cholecystitis Cholecystitis acuity: acute Biliary obstruction: without biliary obstruction Qualified Code(s): K80.00 - Calculus of gallbladder with acute cholecystitis without obstruction Instructions Forms: Precautions for COVID19 Patient Portal Social Distancing
[2019-12-03 10:48] LABS: ALBUMIN 2.5 g/dL (3.4-5.0); COR CA(FOR HYPOALB) 9.2 mg/dL (8.5-10.1); CREATININE 1.92 mg/dL (0.55-1.02)
[2019-12-03 10:54] LABS: BAND NEUTROPHILS % 1 % (0-10)
[2019-12-03 10:55] LABS: PLATELET MORPHOLOGY COMMENT NORMAL (NORMAL)
--- NOTE | 2019-12-03 11:08 | CT ---
HISTORYABD PAINS, CONSTIPATIONSTUDYCT ABDOMEN/PELVIS without IV contrastCOMPARISONReport of prior CT 09/17/2016, images are not availableTECHNIQUEMultiple axial images of the abdomen and pelvis were obtained from the lung bases to the pubic symphysis without the administration of IV contrast. Dose reduction techniques including Automated Exposure Control (AEC) and adjustment of mA and kV were utilized.FINDINGSThe visualized portions of the lung bases suggest CHF. Mild atelectasis is suspected in the CP angles.The large cyst in the right lobe of liver measures 9.6 x 8.9 cm, slightly larger than on prior study. A cannot be further characterized on this unenhanced study. There is a 2nd probable cyst inferiorly in the right hepatic lobe near the gallbladder fossa. It only measures 1.5 cm in diameter. In the dome of the liver there is another probable cyst measuring 1.4 cm in diameter. There is hepatomegaly without splenomegaly.Prominent cholelithiasis is seen. There is concern for likely gallbladder wall thickening suggesting acute cholecystitis. No biliary ductal dilation.No pancreatic abnormality is seen.Adrenal glands are not well visualized without obvious mass.No hydronephrosis or renal abnormality is seen. Ureters and bladder appear normal. Phleboliths are seen in the pelvis.No bowel abnormalities are seen. Normal appendix is seen.No abnormalities are seen of the reproductive organs.Abdominal aorta is normal in size.No suspicious lymphadenopathy.No free intraperitoneal air or fluid is seen.No acute bony abnormality is seen.IMPRESSIONCholelithiasis and likely acute cholecystitis. No biliary ductal dilation.Likely enlargement of the largest suspected cyst in the right hepatic lobe. This is previously described as being complex and should be further evaluated with dynamic contrast enhanced CT, as should the other smaller probable hepatic cysts.No constipation.Electronically signed by: Jeremiah Beasley (Dec 03, 2019 11:07:55)
[2019-12-03] MEDS ORDERED: ZOFRAN INJ 4 MG VIAL IVP ONE (12:18)
[2019-12-03] MEDS ORDERED: NS + KCL 20 MEQ/L 1,000 ML IV ONE (13:17)
[2019-12-03] MEDS ORDERED: ZOFRAN INJ 4 MG VIAL ONE (13:18)
[2019-12-03] MEDS ORDERED: ZOSYN VIAL 3.375 GRAMS 3.375 G in NS 100 ML IV + SPIKE MINIBAG* 100 ML IV ONE (13:23)
[2019-12-03] MEDS: NS + KCL 20 MEQ/L 1,000 ML IV SCH ×2 (14:23→21:14)
[2019-12-03] MEDS ORDERED: ZOSYN VIAL 3.375 GRAMS IV ONE (15:04)
[2019-12-03] MEDS ORDERED: NS 100 ML IV 100 ML IV ONE (15:04)
[2019-12-03] MEDS ORDERED: ZOFRAN INJ 4 MG VIAL IVP PRN (15:13)
[2019-12-03] MEDS ORDERED: PEPCID TAB 20 MG PO PRN (15:13)
[2019-12-03] MEDS ORDERED: DEMEROL INJ IVP PRN (15:13)
[2019-12-03] MEDS ORDERED: TYLENOL 325 MG TAB PO PRN (15:13)
[2019-12-03] MEDS: ZOSYN VIAL 3.375 GRAMS 3.375 G in NS 100 ML IV + SPIKE MINIBAG* 100 ML IV SCH ×2 (15:54→21:13)
[2019-12-03] MEDS ORDERED: NS 250 ML IV 250 ML IV ONE (17:49)
[2019-12-03 23:23] LABS: BILIRUBIN,URINE 2+ (NEGATIVE); BLOOD/HEMOGLOBIN,URINE NEGATIVE (NEGATIVE); GLUCOSE, URINE NEGATIVE (NEGATIVE); KETONES,URINE NEGATIVE (NEGATIVE); LEUKOCYTE ESTERASE ,URINE 1+ (NEGATIVE); NITRITES,URINE NEGATIVE (NEGATIVE); PROTEIN,URINE 2+ (NEGATIVE); UROBILINOGEN,URINE 3+ (NORMAL)
[2019-12-03 23:30] LABS: APPEARANCE,URINE CLEAR (CLEAR)
[2019-12-03 23:31] LABS: AMORPHOUS SEDIMENT,UR 1+ /HPF (NEGATIVE); BACTERIA,URINE NEGATIVE /HPF (NEGATIVE); COLOR,URINE AMBER (YELLOW); HYALINE CASTS, URINE FEW /LPF (NEGATIVE); RBC,URINE 0-2 /HPF (0-3); SQUAMOUS EPITHELIAL CELL,UR RARE /HPF (NEGATIVE)
[2019-12-04] MEDS: NS + KCL 20 MEQ/L 1,000 ML IV SCH ×2 (04:28→17:29)
[2019-12-04] MEDS: ZOSYN VIAL 3.375 GRAMS 3.375 G in NS 100 ML IV + SPIKE MINIBAG* 100 ML IV SCH ×2 (06:22→14:12)
[2019-12-04 06:28] LABS: ALANINE AMINOTRANSFERASE 277 Units/L (12-78); ALBUMIN 2.1 g/dL (3.4-5.0); ALKALINE PHOSPHATASE 274 Units/L (46-116); AMYLASE 11 Units/L (25-115); ASPARTATE AMINO TRANSFERASE 388 Units/L (15-37); BASOPHILS % (AUTO) 0.2 % (0.2-1.0); BLOOD UREA NITROGEN 31 mg/dL (7-18); CALCIUM 7.8 mg/dL (8.5-10.1); CARBON DIOXIDE 28.9 mmol/L (21-32); CHLORIDE 108 mmol/L (98-107); COR CA(FOR HYPOALB) 9.3 mg/dL (8.5-10.1); CREATININE 1.95 mg/dL (0.55-1.02); EOSINOPHILS % (AUTO) 0.4 % (0.9-2.9); HEMATOCRIT 36.8 % (36.0-47.0); HEMOGLOBIN 12.5 g/dL (12.0-16.0); LIPASE 34 Units/L (73-393); LYMPHOCYTES # (AUTO) 0.7 X10^3/uL (1.3-2.9); LYMPHOCYTES % (AUTO) 6.4 % (21.0-51.0); MEAN CORPUSCULAR HGB CONC 34.1 g/dL (33.0-35.0); MEAN CORPUSCULAR VOLUME 90.9 fL (80.0-100.0); MEAN PLATELET VOLUME 9.3 fL (7.4-11.0); MONOCYTES # (AUTO) 0.8 x10^3/uL (0.3-0.8); MONOCYTES % (AUTO) 7.2 % (0.0-13.0); NEUTROPHILS # (AUTO) 9.4 x10^3/uL (2.2-4.8); NEUTROPHILS % (AUTO) 85.8 % (42.0-75.0); PLATELET COUNT 203 X10^3/uL (150.0-450.0); RED BLOOD COUNT 4.04 X10^6/uL (3.5-5.4); RED CELL DISTRIBUTION WIDTH 14.5 % (11.6-16.5); SODIUM 142 mmol/L (136-145); TOTAL PROTEIN 6.3 g/dL (6.4-8.2); WHITE BLOOD COUNT 10.9 X10^3/uL (3.6-10.0); eGFR NON BLACK RACES 27 (>60)
[2019-12-04] MEDS ORDERED: PEPCID TAB 20 MG PO PRN (08:00)
--- NOTE | 2019-12-04 10:15 | RAD ---
HISTORYPreop cholecystectomySTUDYChest AP portableCOMPARISONNoneFINDINGSPatient is rotated to the right. The heart is enlarged. No congestive heart failure is noted. No definite acute alveolar infiltrates or pleural effusions are identified. The rachell are prominent likely enlarged pulmonary arteries. However, further evaluation with upright non rotated PA and lateral chest examination is recommended.IMPRESSIONCardiomegaly without congestive heart failureLungs clearProminent rachell likely due to enlarged pulmonary arteries however further evaluation with upright non rotated PA and lateral chest examination is recommended.Electronically signed by: LUNA WOLFE (Dec 04, 2019 10:14:01)
--- NOTE | 2019-12-04 10:29 | US ---
HISTORYRUQ PAINSTUDYGALL BLADDERCOMPARISONCT abdomen and pelvis from 1 day priorTECHNIQUEGallbladder sonogramFINDINGSThe liver measures up to 20 cm and appears echogenic. Portal vein has hepatopetal flow. There are multiple cholelithiasis. Borderline gallbladder wall thickening at 3 mm. No pericholecystic fluid identified. Common duct normal at 7 mm. Right kidney measures up to 10.5 cm and appears benign. Right reese liver cyst measures up to 8.7 cm.IMPRESSIONCholelithiasis with borderline gallbladder wall thickening. This is indeterminate for acute cholecystitis. Consider HIDA scan for further evaluation.Echogenic liver consistent with parenchymal disease such as steatosis.Electronically signed by: García Brush (Dec 04, 2019 10:28:44)
[2019-12-04] MEDS ORDERED: NS 250 ML IV 250 ML IV ONE (14:15)
--- NOTE | 2019-12-04 19:17 | DR.H&P ---
H&P - History & Physical for Day of: H&P Date: 12/03/19 - Chief Complaint Chief Complaint: ABDOMINAL PAIN, N/V/D - History of Present Illness History of Present Illness: PT IS 74 BF ER ADMISSION WITH OF ABDOMINAL PAIN WITH N/V/D. PT HAD CT SCAN IN ER REVEALING -Cholelithiasis and likely acute cholecystitis. PT HAS RECENT HX OF INCREASED NAUSEA AND FOOD INTOLERANCE. PT HAD ELEVATED LFT'S ON ADMISSION. PT HAD PMH OF OA, GERD, HTN, MO, AFIB. PT DENIES ANY CAD, REPORTS HEART CATH IN 2018 IN [facility]. PT ADMITTED FOR TREATMENT OF ACUTE ILLNESS. - Past Medical History Past Medical History: Hypertension, Anxiety, COPD, GERD, Arthritis - Past Surgical History Surgical History: Angioplasty/Stents - Family History Family Medical History: Coronary Artery Disease, Hypertension - Social History Does patient currently use any type of tobacco product: No Have you used tobacco products in the last 12 months: No Type of Tobacco Use: None Does any household member use tobacco: No Alcohol Use: None Drug Use: None - Medications Home Medications: No Known Drug Allergies [NKDA] Allergy (Verified 06/02/17 20:23) CONTINUE taking the following medications apixaban [Eliquis] 5 mg PO BID 12/04/19 [History] furosemide 20 mg PO DAILY 12/04/19 [History] hydrochlorothiazide 12.5 mg PO DAILY 12/04/19 [History] hydrocodone-acetaminophen 1 tab PO BID PRN 12/04/19 [History] losartan 50 mg PO DAILY 12/04/19 [History] metoprolol tartrate 25 mg PO BID 12/04/19 [History] potassium chloride 10 meq PO DAILY 12/04/19 [History] - Review of Systems Constitutional: Weakness Eyes: No Symptoms Reported Respiratory: No Symptoms Reported Cardiovascular: No Symptoms Reported Gastrointestinal: Nausea, Vomiting, Abdominal Pain, Diarrhea Genitourinary: No Symptoms Reported Musculoskeletal: Back Pain, Leg Pain Skin: No Symptoms Reported Neurological: No Symptoms Reported - Physical Exam Vital Signs: Temperature 97.9 F Pulse Rate [Right Radial] 60 Pulse Rate 77 Respiratory Rate 20 Blood Pressure [Left Arm] 119/64 Blood Pressure 115/73 O2 Sat by Pulse Oximetry 97 Oriented: Normal Eyes: Normal Ear: Normal Nose: Normal Throat: Dry Respiratory: RLL Diminished, LLL Diminished Cardiovascular: Normal. negative: Edema Auscultation: Bowel Sounds: Normal Palpation: Normal, Other (OBESE ABDOMEN) Tenderness: Diffuse, RUQ, Epigastric Skin: Normal, Other (MARKED, CHRONIC SOFT TISSUE EDEMA TO RIGHT INNER THIGH) Musculoskeletal: Knee, Back:Lumbar Psychiatric: Anxiety Affect: Anxious Speech Pattern: Clear, Appropriate - Assessment/Plan (1) Acute cholecystitis Status: Acute Plan: ADMIT, IV HYDRATION. NPO FOR SURGICAL CONSULT. CXR AND EKG ON ADMISSION. CBC CMP AMYLASE AND LIPASE. BP CONTROL, VERIFY HOME MEDICATION, VERIFY LAST CARDIAC EVALUATION (2) Cholelithiases Qualifiers: Cholelithiasis location: gallbladder Cholecystitis presence: with cholecystitis Cholecystitis acuity: acute Biliary obstruction: without penny iary obstruction Qualified Code(s): K80.00 - Calculus of gallbladder with acute cholecystitis without obstruction Status: Acute (3) Nausea & vomiting Qualifiers: Vomiting type: unspecified Vomiting Intractability: non-intractable Qualified Code(s): R11.2 - Nausea with vomiting, unspecified Status: Acute (4) Arthritis Status: Acute (5) GERD (gastroesophageal reflux disease) Status: Acute (6) Hypertension Status: Acute - Allergies Allergies/Adverse Reactions: Allergies Allergy/AdvReac Type Severity Reaction Status Date / Time No Known Drug Allergies Allergy Verified 06/02/17 20:23 [NKDA]
[2019-12-04] MEDS ORDERED: ELIQUIS PO SCH (21:00)
[2019-12-04 21:19] VITALS: BP 105/65
--- NOTE | 2019-12-27 08:18 | DR.CARTERD ---
- Discharge Summary for: Discharge Summary for Date of:: 12/04/19 - Admission Date Date of Admission: 12/03/19 - Admission Diagnoses Admission Diagnosis: Acute choleliathiasis. Abd pain. nausea and vomiting - Discharge Date Discharge Date: 12/04/19 - Hospital Course Hospital Course: T IS 74 BF ER ADMISSION WITH OF ABDOMINAL PAIN WITH N/V/D. PT HAD CT SCAN IN ER REVEALING -Cholelithiasis and likely acute cholecystitis. PT HAS RECENT HX OF INCREASED NAUSEA AND FOOD INTOLERANCE. PT HAD ELEVATED LFT'S ON ADMISSION. PT HAD PMH OF OA, GERD, HTN, MO, AFIB. PT DENIES ANY CAD, REPORTS HEART CATH IN 2018 IN [facility]. PT ADMITTED FOR TREATMENT OF ACUTE ILLNESS. PATIENT HAD ELEVATED LIVER ENZYMES. PATIENT SEEN IN CONSULT BY DR KRAMER, SURGEON. PATIENT TRANSFERRED [facility]THER CARE. - Discharge Medications Discharge Medications: Home Medication List apixaban [Eliquis] 5 mg PO BID 12/04/19 [History] furosemide 20 mg PO DAILY 12/04/19 [History] hydrochlorothiazide 12.5 mg PO DAILY 12/04/19 [History] hydrocodone-acetaminophen 1 tab PO BID PRN 12/04/19 [History] losartan 50 mg PO DAILY 12/04/19 [History] metoprolol tartrate 25 mg PO BID 12/04/19 [History] potassium chloride 10 meq PO DAILY 12/04/19 [History] Prescriptions: - Discharge Disposition Discharge Disposition: Transfer to Tertiary - Discharge Diagnoses Health Concerns: Post Hospitalization: new medications and changes needed to prevent readmission or further decline. Pt educated and given instructions on all concerns. Plan of Treatment: Continue with present treatment and follow up plan. Pt is to keep follow up appointment as instructed and take medications as ordered.
== END 2019-12-04 20:40 | disposition short-term general hospital (02) ==
LOC: ER 09:49 → MED/SURG 09:49
PROVIDERS: ADMIT Internal Medicine; ATTEND Internal Medicine
DX: J44.9 Chronic obstructive pulmonary disease, unspecified; E86.0 Dehydration; I10 Essential (primary) hypertension; R11.2 Nausea with vomiting, unspecified; R26.89 Other abnormalities of gait and mobility; E87.6 Hypokalemia; I48.91 Unspecified atrial fibrillation; K21.9 Gastro-esophageal reflux disease without esophagitis; R94.4 Abnormal results of kidney function studies; M13.88 Other specified arthritis, other site; K80.00 Calculus of gallbladder with acute cholecystitis without obstruction

== ENCOUNTER 2019-12-30 22:29 | Observation (INO) ==
--- NOTE | 2019-12-30 22:36 | DR.GENAD ---
HPI Time Seen Time Seen by Provider: 12/30/19 22:32 HPI Comment HPI Comment: 74 yo aaf w/ prev hx of juvenal, afib, htn 3 weeks s/p lap anjali presents w/ 2 day hx of n/v. Multiple episodes per day of nb/ nb emesis along w/ diff abd cramping. No diarrhea, urinary sx's, back pain, f/c, blood per rectum. No CP or sob. + myalgias. Mode of Arrival Mode of Arrival: EMS Duration Duration: Since Onset How lon Duration: Days Severity Severity: Moderate PMH PMH Past Medical History: Anxiety, Arthritis, COPD, GERD and Hypertension Past Surgical History: Yes Surgical History: Angioplasty/Stents and Cholecystectomy Family History Family Medical History: Coronary Artery Disease and Hypertension Social History Alcohol Use: None Do you use any recreational Drugs:: No ROS Review of Systems Constitutional: Malaise and Fatigue; negative Chills and Fever Eyes: No Symptoms Reported ENTM: No Symptoms Reported Respiratoy: No Symptoms Reported Cardiovascular: No Symptoms Reported Gastrointestinal/Abdominal: Abdominal Pain and Vomiting; negative Constipation, Diarrhea and Nausea Genitourinary: No Symptoms Reported Neurological: No Symptoms Reported Musculoskeletal: No Symptoms Reported Integumentary: No Symptoms Reported Hematologic/Lymphatic: No Symptoms Reported Endocrine: No Symptoms Reported Psychiatric: No Symptoms Reported All Other Systems: Reviewed and Negative PE Vital Signs Vitals: Temperature 98.0 F Pulse Rate 66 Respiratory Rate 22 Blood Pressure [Left Arm] 105/65 Blood Pressure [Right Arm] 116/75 Blood Pressure [Left Arm] 133/86 Blood Pressure 107/67 O2 Sat by Pulse Oximetry 95 General Limitations: No Limitations General Appearance: Alert and In No Apparent Distress Head Head Exam: Normal Inspection Eyes Eye exam: Normal Appearance ENT ENT Exam: Normal Exam External Ear Exam: Normal External Inspection TM/Canal Exam: Bilateral: Normal Nose Exam: Normal Nose Exam Mouth Exam: Normal Inspection Throat Exam: Normal Inspection Neck Neck Exam: Normal Inspection Chest Chest Inspection: Normal Inspection Respiratory Respiratory Exam: Normal Lung Sounds Bilat Respiratory Exam: Bilateral: Clear to Auscultation Cardiovascular Cardiovascular Exam: Regular Rate and Normal Rhythm Abdominal Exam Abdominal Exam: Normal Bowel Sounds and Guarding; negative Soft, Distention, Rigidity and Dimnished Bowel Sounds Abdominal Tenderness: Diffuse and Mild Extremities Extremities Exam: Normal Inspection Back Back Exam: Normal Inspection Neurologic Neurological Exam: Alert and Oriented X3 Psychiatric Psychiatric Exam: Normal Affect and Normal Mood Skin Skin Exam: Warm, Dry, Intact and Normal Color MDM Differential Diagnosis Differential Diagnosis: sbo, peritonitis, perf viscous, intrabdominal abscess, covid, pna COURSE Treatment Treatment: 74 yo f, covid _ w/ ambulatory dysfunction. Inflammatory markers up, no o2 requirement. Fluids given as well as antipyretics for pain control. d/w Dr Gonzales whom agrees to admit to obs. [facility] Labs Reviewed Laboratory Results Reviewed?: Yes Result Diagrams: 12/30/19 22:46 12/30/19 22:46 Laboratory: WBC 4.6 X10^3/uL (3.6-10.0) 12/30/19 22:46 RBC 4.31 X10^6/uL (3.5-5.4) 12/30/19 22:46 Hgb 13.1 g/dL (12.0-16.0) 12/30/19 22:46 Hct 38.5 % (36.0-47.0) 12/30/19 22:46 MCV 89.1 fL (80.0-100.0) 12/30/19 22:46 MCH 30.4 pg (27.0-34.0) 12/30/19 22:46 MCHC 34.1 g/dL (33.0-35.0) 12/30/19 22:46 RDW 14.2 % (11.6-16.5) 12/30/19 22:46 Plt Count 248 X10^3/uL (150.0-450.0) 12/30/19 22:46 MPV 8.8 fL (7.4-11.0) 12/30/19 22:46 Neut % (Auto) 74.8 % (42.0-75.0) 12/30/19 22:46 Lymph % (Auto) 13.5 % (21.0-51.0) L 12/30/19 22:46 Williams % (Auto) 11.0 % (0.0-13.0) 12/30/19 22:46 Eos % (Auto) 0.5 % (0.9-2.9) L 12/30/19 22:46 Baso % (Auto) 0.2 % (0.2-1.0) 12/30/19 22:46 Neut # (Auto) 3.5 x10^3/uL (2.2-4.8) 12/30/19 22:46 Lymph # (Auto) 0.6 X10^3/uL (1.3-2.9) L 12/30/19 22:46 Williams # (Auto) 0.5 x10^3/uL (0.3-0.8) 12/30/19 22:46 Eos # (Auto) 0.0 x10^3/uL (0.0-0.2) 12/30/19 22:46 Baso # (Auto) 0.0 X10^3/uL (0.0-0.1) 12/30/19 22:46 Absolute Nucleated RBC 0.0 /100WBC 12/30/19 22:46 Sodium 140 mmol/L (136-145) 12/30/19 22:46 Corrected Sodium TNP 12/30/19 22:46 Potassium 3.4 mmol/L (3.5-5.1) L 12/30/19 22:46 Chloride 103 mmol/L (98-107) 12/30/19 22:46 Carbon Dioxide 30.0 mmol/L (21-32) 12/30/19 22:46 BUN 21 mg/dL (7-18) H 12/30/19 22:46 Creatinine 1.51 mg/dL (0.55-1.02) H 12/30/19 22:46 Est GFR (MDRD) Af Amer 43 (>60) L 12/30/19 22:46 Est GFR (MDRD) Non-Af 36 (>60) L 12/30/19 22:46 Glucose 90 mg/dL (65-99) 12/30/19 22:46 Calcium 8.2 mg/dL (8.5-10.1) L 12/30/19 22:46 Corrected Calcium 9.7 mg/dL (8.5-10.1) 12/30/19 22:46 Ferritin 1169 ng/mL (8-252) H 12/30/19 22:46 Total Bilirubin 1.20 mg/dL (0.2-1.0) H 12/30/19 22:46 AST 77 Units/L (15-37) H 12/30/19 22:46 ALT 54 Units/L (12-78) 12/30/19 22:46 Alkaline Phosphatase 106 Units/L (46-116) 12/30/19 22:46 Lactate Dehydrogenase 220 Units/L (81-234) 12/30/19 22:46 Troponin I 0.04 ng/mL (0-1.5) 12/30/19 22:46 C-Reactive Protein 18.50 mg/L (0-3.0) H 12/30/19 22:46 Total Protein 7.2 g/dL (6.4-8.2) 12/30/19 22:46 Albumin 2.1 g/dL (3.4-5.0) L 12/30/19 22:46 Globulin 5.1 g/dL (2.5-4.5) H 12/30/19 22:46 Albumin/Globulin Ratio 0.4 Ratio (1.1-2.1) L 12/30/19 22:46 Lipase 81 Units/L (73-393) 12/30/19 22:46 Specimen Type Catherized urine 12/31/19 02:50 Urine Color Leigh Ann (YELLOW) 12/31/19 02:50 Urine Appearance Clear (CLEAR) 12/31/19 02:50 Urine pH 6.0 (5.0 - 8.0) 12/31/19 02:50 Ur Specific Disney 1.015 (1.000-1.030) 12/31/19 02:50 Urine Protein 2+ (NEGATIVE) 12/31/19 02:50 Urine Glucose (UA) Negative (NEGATIVE) 12/31/19 02:50 Urine Ketones 1+ (NEGATIVE) 12/31/19 02:50 Urine Occult Blood Negative (NEGATIVE) 12/31/19 02:50 Urine Nitrite Negative (NEGATIVE) 12/31/19 02:50 Urine Bilirubin 1+ (NEGATIVE) 12/31/19 02:50 Urine Urobilinogen 3+ (NORMAL) 12/31/19 02:50 Ur Leukocyte Esterase 1+ (NEGATIVE) 12/31/19 02:50 Urine RBC 0-2 /HPF (0-3) 12/31/19 02:50 Urine WBC 0-2 /HPF (0-5) 12/31/19 02:50 Ur Squamous Epith Cells Few /HPF (NEGATIVE) 12/31/19 02:50 Urine Bacteria Trace /HPF (NEGATIVE) 12/31/19 02:50 Urine Mucus Few /HPF (NEGATIVE) 12/31/19 02:50 Urine Yeast Moderate /HPF (NEGATIVE) 12/31/19 02:50 Ur Culture Indicated? No/not indicated 12/31/19 02:50 SARS-CoV-2 (PCR) Positive (NEGATIVE) A 12/31/19 02:36 XRAY XRAY Interpreted by: Radiologist X-ray Results: cxr: infiltrate present EKG Rate: 63 [place]: Normal Rhythm: NSR ST: Nonsp (no st segment elevation, t wave inversions inf leads, prologed qt) Opioid Opioid Risk Tool Age (Gurmeet box if 16-45): No History of Preadolescent Sexual Abuse: No Total: 0 Total Score Risk Category: Low Risk Copyright: Sunny JEWELL predicting aberrant behaviors Diagnosis Discharge Problem: COVID-19, Ambulatory dysfunction
[2019-12-30 22:44] VITALS: BMI 48.4
[2019-12-30 22:58] LABS: BASOPHILS % (AUTO) 0.2 % (0.2-1.0); EOSINOPHILS % (AUTO) 0.5 % (0.9-2.9); HEMATOCRIT 38.5 % (36.0-47.0); HEMOGLOBIN 13.1 g/dL (12.0-16.0); LYMPHOCYTES # (AUTO) 0.6 X10^3/uL (1.3-2.9); LYMPHOCYTES % (AUTO) 13.5 % (21.0-51.0); MEAN CORPUSCULAR HEMOGLOBIN 30.4 pg (27.0-34.0); MEAN CORPUSCULAR HGB CONC 34.1 g/dL (33.0-35.0); MEAN CORPUSCULAR VOLUME 89.1 fL (80.0-100.0); MEAN PLATELET VOLUME 8.8 fL (7.4-11.0); MONOCYTES # (AUTO) 0.5 x10^3/uL (0.3-0.8); NEUTROPHILS # (AUTO) 3.5 x10^3/uL (2.2-4.8); NEUTROPHILS % (AUTO) 74.8 % (42.0-75.0); PLATELET COUNT 248 X10^3/uL (150.0-450.0); RED BLOOD COUNT 4.31 X10^6/uL (3.5-5.4); RED CELL DISTRIBUTION WIDTH 14.2 % (11.6-16.5); WHITE BLOOD COUNT 4.6 X10^3/uL (3.6-10.0)
--- NOTE | 2019-12-30 23:08 | RAD ---
HISTORYSOB, N/V, BODYACHESSTUDYCHEST, 1 [id number]/2020FINDINGSThe trachea is midline. The cardiac silhouette is enlarged, similar to prior exam. There is evidence of central pulmonary vascular congestion. Perihilar interstitial opacities suggest interstitial edema or infiltrates. No pleural effusion or pneumothorax. Low lung volume... The bony thorax is stable.IMPRESSIONMild cardiomegaly and evidence of central pulmonary vascular congestion with perihilar interstitial edema versus infiltrates.Electronically signed by: Ynes Oneill (Dec 30, 2019 23:08:10)
[2019-12-30 23:12] LABS: ALANINE AMINOTRANSFERASE 54 Units/L (12-78); ALBUMIN 2.1 g/dL (3.4-5.0); ALKALINE PHOSPHATASE 106 Units/L (46-116); ASPARTATE AMINO TRANSFERASE 77 Units/L (15-37); BLOOD UREA NITROGEN 21 mg/dL (7-18); CALCIUM 8.2 mg/dL (8.5-10.1); CHLORIDE 103 mmol/L (98-107); COR CA(FOR HYPOALB) 9.7 mg/dL (8.5-10.1); CREATININE 1.51 mg/dL (0.55-1.02); LACTATE DEHYDROGENASE 220 Units/L (81-234); SODIUM 140 mmol/L (136-145); TOTAL PROTEIN 7.2 g/dL (6.4-8.2); TROPONIN I 0.04 ng/mL (0-1.5); eGFR NON BLACK RACES 36 (>60)
[2019-12-30] MEDS ORDERED: NS 1000 ML 1,000 ML IV ONE (23:18)
[2019-12-30] MEDS ORDERED: TORADOL 15 MG VIAL IVP ONE (23:18)
[2019-12-30] MEDS ORDERED: ZOFRAN INJ 4 MG VIAL IVP ONE (23:35)
[2019-12-30] MEDS ORDERED: ZOFRAN INJ 4 MG VIAL ONE (23:45)
[2019-12-30] MEDS ORDERED: NS 1000 ML 0 ML ONE (23:46)
[2019-12-30] MEDS ORDERED: TORADOL 15 MG VIAL ONE (23:46)
--- NOTE | 2019-12-31 01:26 | CT ---
HISTORYN/V, CHOLECYSTECTOMY, ABD PAINSTUDYABDOMEN/PELVIS W/O [id number] axial images of the abdomen and pelvis were obtained from the lung bases to the pubic symphysis without IV contrast. Coronal and sagittal reformats obtained. Dose reduction techniques including Automated Exposure Control (AEC) and adjustment of mA and kV were utilized.FINDINGSLack of intravenous contrast compromises evaluation of solid organs and vasculature.Thoracic: New reticular opacity at the bilateral lung bases, which may be seen with atelectasis or scarring. Nonspecific patchy ground-glass opacities.Hepatobiliary: Multiple low-density lesions of the right hepatic lobe, largest measures 9.3 cm, similar to prior exam. Gallbladder has been removed. In the region of the gallbladder fossa, there is a region of air-fluid level, possibly represent a duodenal diverticulum.Pancreas: No abnormality identified in the pancreas. Question mild hazy stranding in the region of the pancreatic head/duodenum.Spleen: No abnormality identified in the spleen.Adrenals: No abnormality identified in either adrenal glandGenitourinary: Tiny low-density lesion of the bilateral kidneys, too small to be characterized. No hydronephrosis or nephrolithiasis. Evaluation of the bladder is limited, but no obvious bladder abnormality is present. Uterus is present.Gastrointestinal: No evidence of bowel obstruction or perienteric inflammation. Moderate colonic stool burden. Scattered colonic diverticula without CT evidence is of acute diverticulitis. No focal dilatation of small. The stomach is decompressed. Small hiatal hernia. The appendix is not visualized.Vascular/Lymphatics: No bulky adenopathy. Abdominal aorta is normal in caliber. Mild atherosclerotic calcification.Peritoneum/Other: [No extraluminal air.] [No extraluminal fluid. ]MSK/Body Wall: No concerning bony lesion identified. Multilevel spondylosis. Similar to prior exam.IMPRESSIONHazy stranding in the region of the pancreatic head/duodenum could represent postoperative changes, or inflammatory changes, which may be seen with duodenitis or pancreatitis.. Correlate clinically with laboratory value is recommended.Bibasilar atelectasis versus scarring. Nonspecific patchy ground-glass opacities could represent atelectasis or early infiltrates in the appropriate clinical setting.Status post cholecystectomy. A air-fluid level in the region of the gallbladder fossa the, possibly represent a duodenal diverticulum.Colonic diverticulosis without CT evidence of acute diverticulitis. Moderate colonic stool burden may be correlated clinically for constipation.Additional stable findings as detailed.Electronically signed by: Ynes Oneill (Dec 31, 2019 01:26:17)
[2019-12-31] MEDS ORDERED: ZOFRAN INJ 4 MG VIAL IVP ONE (03:02)
[2019-12-31] MEDS ORDERED: TORADOL 15 MG VIAL IVP ONE (03:02)
[2019-12-31 03:11] LABS: BILIRUBIN,URINE 1+ (NEGATIVE); BLOOD/HEMOGLOBIN,URINE NEGATIVE (NEGATIVE); GLUCOSE, URINE NEGATIVE (NEGATIVE); KETONES,URINE 1+ (NEGATIVE); LEUKOCYTE ESTERASE ,URINE 1+ (NEGATIVE); NITRITES,URINE NEGATIVE (NEGATIVE); PROTEIN,URINE 2+ (NEGATIVE); UROBILINOGEN,URINE 3+ (NORMAL)
[2019-12-31 03:16] LABS: APPEARANCE,URINE CLEAR (CLEAR); COLOR,URINE AMBER (YELLOW)
[2019-12-31 03:17] LABS: BACTERIA,URINE TRACE /HPF (NEGATIVE); MUCUS,URINE FEW /HPF (NEGATIVE); RBC,URINE 0-2 /HPF (0-3); SQUAMOUS EPITHELIAL CELL,UR FEW /HPF (NEGATIVE); YEAST,URINE MODERATE /HPF (NEGATIVE)
[2019-12-31] MEDS ORDERED: NS 1000 ML 1,000 ML IV SCH (04:00)
[2019-12-31] MEDS: NS 1000 ML 1,000 ML IV SCH ×4 (09:27→21:54)
--- NOTE | 2019-12-31 10:56 | DR.H&P ---
H&P - History & Physical for Day of: H&P Date: 12/31/19 - Chief Complaint Chief Complaint: nausea, chills, fever, covid +exposure - History of Present Illness History of Present Illness: PT IS 74 BF ER ADMISSION WITH CO FATIGUE, FEVER, CHILLS, WEAKNESS WITH NAUSEA. PT DENIES ANY CHEST PAIN ON ADMISSION. PT HAS BEEN EXPOSED TO COVID 19, SHE TESTED POSITIVE IN ER FOR COVID19+. PT HAD PMH OF HTN, CHF, AFIB, OA, MO. PT ADMITTED FOR TREATMENT OF ACUTE ILLNESS, DEHYDRATION, COVID 19+ PNEUMONIA. - Past Medical History Past Medical History: Arthritis, CHF, GERD, Gout, Hypertension. denies: Diabetes Additional Medical History: AFIB - Past Surgical History Surgical History: Angioplasty/Stents, Cholecystectomy - Family History Family Medical History: Coronary Artery Disease, Hypertension - Social History Does patient currently use any type of tobacco product: No Have you used tobacco products in the last 12 months: No Type of Tobacco Use: None Does any household member use tobacco: No Alcohol Use: None - Medications Home Medications: No Known Drug Allergies [NKDA] Allergy (Verified 06/02/17 20:23) CONTINUE taking the following medications amiodarone 200 mg PO BID 12/31/19 [History] - Review of Systems Constitutional: Fever, Chills, Weakness, Malaise Eyes: No Symptoms Reported ENT: No Symptoms Reported Respiratory: SOB with Excertion Gastrointestinal: Nausea Genitourinary: No Symptoms Reported Musculoskeletal: Back Pain, Leg Pain Skin: No Symptoms Reported Neurological: Weakness - Physical Exam Vital Signs: Temperature 98.0 F Pulse Rate [Left Brachial] 56 Pulse Rate 66 Respiratory Rate 21 Blood Pressure [Left Arm] 107/67 Blood Pressure [Right Arm] 116/75 Blood Pressure [Left Arm] 133/86 Blood Pressure 107/67 O2 Sat by Pulse Oximetry 93 Oriented: Normal Eyes: Normal Ear: Normal Nose: Normal Throat: Dry Respiratory: Diminished Throughout Cardiovascular: Normal : Normal Auscultation: Bowel Sounds: Normal Palpation: Normal Tenderness: Epigastric, Mild Skin: Decreased Turgur Musculoskeletal: Right, Left, Knee, Back:Thoracic, Back:Lumbar Psychiatric: Anxiety Affect: Anxious Speech Pattern: Clear, Appropriate - Assessment/Plan (1) Pneumonia Status: Acute Plan: ADMIT, ISOLATION RO HYPOXIA, SEPSIS. IV ZITHROMAX AND ZOSYN, REMDESIVIR AND CONVALESCENT PLASMA. IV SOLU MEDROL, STRICT I&OS. GENTLE IV HYDRATION, CARDIAC MONITORING, BP CONTROL. SUPPLEMENTAL O2 AND RESP THERAPY, ABG ON ADMISSION (2) COVID-19 Status: Acute (3) Acute dehydration Status: Acute (4) CHF (congestive heart failure) Status: Acute (5) GERD (gastroesophageal reflux disease) Status: Acute (6) Hypertension Status: Acute (7) Nausea & vomiting Qualifiers: Vomiting type: unspecified Vomiting Intractability: non-intractable Qualified Code(s): R11.2 - Nausea with vomiting, unspecified Status: Acute (8) Shortness of breath Status: Acute - Allergies Allergies/Adverse Reactions: Allergies Allergy/AdvReac Type Severity Reaction Status Date / Time No Known Drug Allergies Allergy Verified 06/02/17 20:23 [NKDA]
[2019-12-31] MEDS ORDERED: REMDESIVIR (INVESTIGATIONAL DRUG GS-5734) 200 MG in NS 250 ML IV 250 ML IV SCH (11:00)
[2019-12-31] MEDS ORDERED: COZAAR PO SCH (11:00)
[2019-12-31 11:41] LABS: ABG ALLEN TEST POS; ABG HCO3 32.5 mmol/L (22-26)
[2019-12-31] MEDS ORDERED: DUONEB 0.5 MG/3 MG (3 mL) NEB ONE (11:49)
[2019-12-31] MEDS: DUONEB 0.5 MG/3 MG (3 mL) NEB SCH ×3 (12:10→21:08)
[2019-12-31] MEDS: ZITHROMAX INJ 500 MG VIAL 500 MG in NS 250 ML IV 250 ML IV SCH (13:22)
[2019-12-31] MEDS: NYSTATIN POWDER TOP SCH ×2 (13:22→21:54)
[2019-12-31] MEDS ORDERED: XYLOCAINE 1 % (PLAIN) ONE (14:24)
[2019-12-31] MEDS: NORCO 10/325 TAB PO PRN (15:30)
[2019-12-31] MEDS: ZOSYN VIAL 3.375 GRAMS 3.375 G in NS 100 ML IV + SPIKE MINIBAG* 100 ML IV SCH ×3 (15:43→21:54)
[2019-12-31] MEDS: DIFLUCAN 200 MG IV PREMIX* 200 MG/100 ML BAG IV SCH (16:00)
--- NOTE | 2019-12-31 16:19 | DR.UPDATE ---
H&P Update History and Physical Update: History and Physical reviewed and patient examined. Changes noted: NO Yes with the following:Agree with H&P. Will attempt picc/tlc H&P Reviewed: Yes Patient was examined?: Yes Procedures (ALL) - Central Line Placement PCM.CLCO: written consent Time out performed: Yes Patient placed pm monitor/pulse ox: Yes MD prep: mask, gown, gloves, other Centrial line prep: povidone-iodine 1%, chlorhexidine scrub, sterile drapes applied Local anesthsia used: lidocane 1% Ultrasound used for placement: Yes (right brachial id'd via us) Patient tolerated procedure: Yes Complications: none (unable to thread wire past 10cm after brachial cannulated x2. no veins on left UE visualized via u/s)
--- NOTE | 2019-12-31 16:20 | DR.UPDATE ---
H&P Update History and Physical Update: History and Physical reviewed and patient examined. Changes noted: NO Yes with the following: H&P Reviewed: Yes Patient was examined?: Yes Procedures (ALL) - Central Line Placement PCM.CLCO: written consent Time out performed: Yes Patient placed pm monitor/pulse ox: Yes MD prep: mask, gown, gloves, other Centrial line prep: povidone-iodine 1%, sterile drapes applied Local anesthsia used: lidocane 1% Ultrasound used for placement: Yes (right IJ id'd via u/s) Central line lumen ininserted: triple Post procedure: sutured in place, good blood return, all ports aspirated, flushed,capped, sterile dressing applied Post procedure xray: tip oc catheter in good position, no pneumothorax seen Patient tolerated procedure: Yes Complications: none
[2019-12-31] MEDS ORDERED: ZOFRAN INJ 4 MG VIAL ONE (18:42)
[2019-12-31] MEDS: ZOFRAN INJ 4 MG VIAL IVP PRN (18:46)
--- NOTE | 2019-12-31 19:06 | RAD ---
CHEST, 1 VIEWHISTORY: central line placementStudy: Single view of the chest.Comparison: NoneFindings:Re-demonstration of enlarged cardiac silhouette. The patient is severely rotated. No focal consolidations, pleural effusions or pneumothorax. Osseous structures demonstrate no acute abnormality. A right central catheter terminates over the expected area of the SVC.IMPRESSION:1. Severe rotation of the patient results in limited evaluation.2. A right central catheter terminating over the expected area of the SVC.Electronically signed by: WAYNE PATTEN (Dec 31, 2019 19:05:32)
[2019-12-31] MEDS: LOPRESSOR TAB 25 MG PO SCH (21:54)
[2019-12-31] MEDS: LIPITOR TAB 10 MG PO SCH (21:54)
[2019-12-31] MEDS: ELIQUIS PO SCH (21:54)
[2020-01-01 05:53] LABS: BASOPHILS % (AUTO) 0.5 % (0.2-1.0); EOSINOPHILS # (AUTO) 0.1 x10^3/uL (0.0-0.2); EOSINOPHILS % (AUTO) 3.3 % (0.9-2.9); HEMATOCRIT 35.2 % (36.0-47.0); HEMOGLOBIN 11.7 g/dL (12.0-16.0); LYMPHOCYTES # (AUTO) 0.7 X10^3/uL (1.3-2.9); LYMPHOCYTES % (AUTO) 20.5 % (21.0-51.0); MEAN CORPUSCULAR HEMOGLOBIN 30.5 pg (27.0-34.0); MEAN CORPUSCULAR HGB CONC 33.2 g/dL (33.0-35.0); MEAN CORPUSCULAR VOLUME 91.7 fL (80.0-100.0); MEAN PLATELET VOLUME 9.9 fL (7.4-11.0); MONOCYTES # (AUTO) 0.4 x10^3/uL (0.3-0.8); NEUTROPHILS # (AUTO) 2.1 x10^3/uL (2.2-4.8); NEUTROPHILS % (AUTO) 63.7 % (42.0-75.0); PLATELET COUNT 204 X10^3/uL (150.0-450.0); RED BLOOD COUNT 3.83 X10^6/uL (3.5-5.4); RED CELL DISTRIBUTION WIDTH 14.6 % (11.6-16.5); WHITE BLOOD COUNT 3.2 X10^3/uL (3.6-10.0)
[2020-01-01 05:59] LABS: ALANINE AMINOTRANSFERASE 43 Units/L (12-78); ALBUMIN 1.8 g/dL (3.4-5.0); ALKALINE PHOSPHATASE 94 Units/L (46-116); ASPARTATE AMINO TRANSFERASE 54 Units/L (15-37); BLOOD UREA NITROGEN 23 mg/dL (7-18); CALCIUM 7.8 mg/dL (8.5-10.1); CARBON DIOXIDE 31.1 mmol/L (21-32); CHLORIDE 106 mmol/L (98-107); COR CA(FOR HYPOALB) 9.6 mg/dL (8.5-10.1); CREATININE 1.34 mg/dL (0.55-1.02); MAGNESIUM 1.5 mg/dL (1.7-2.9); SODIUM 143 mmol/L (136-145); TOTAL PROTEIN 6.5 g/dL (6.4-8.2); eGFR NON BLACK RACES 41 (>60)
[2020-01-01] MEDS: ZOSYN VIAL 3.375 GRAMS 3.375 G in NS 100 ML IV + SPIKE MINIBAG* 100 ML IV SCH ×3 (06:44→21:04)
[2020-01-01] MEDS ORDERED: K-RIDER 10 MEQ/NS 100 ML 10 MEQ/100 ML BAG IV PRN (06:47)
[2020-01-01] MEDS ORDERED: K-DUR TAB 20 MEQ PO PRN (06:47)
[2020-01-01] MEDS ORDERED: POTASSIUM CHLORIDE LIQ 20 MEQ UDC PO PRN (06:47)
[2020-01-01] MEDS ORDERED: KLOR-CON PO PRN (06:47)
[2020-01-01] MEDS ORDERED: MICRO K EXTEN CAP 10 MEQ PO PRN (06:47)
[2020-01-01] MEDS ORDERED: POTASSIUM CHL 60 MEQ/NS 0.45% 500 ML IV PRN (06:47)
[2020-01-01] MEDS ORDERED: POTASSIUM CHL 40 MEQ/NS 0.45% 500 ML IV PRN (06:47)
[2020-01-01] MEDS: DUONEB 0.5 MG/3 MG (3 mL) NEB SCH ×5 (08:20→20:45)
[2020-01-01] MEDS: ZOFRAN INJ 4 MG VIAL IVP PRN ×2 (08:20→16:35)
[2020-01-01] MEDS: COZAAR PO SCH (09:30)
[2020-01-01] MEDS: DIFLUCAN 200 MG IV PREMIX* 200 MG/100 ML BAG IV SCH (09:30)
[2020-01-01] MEDS: ELIQUIS PO SCH ×2 (09:30→20:28)
[2020-01-01] MEDS: LOPRESSOR TAB 25 MG PO SCH ×2 (10:30→20:29)
[2020-01-01] MEDS: MICRO K EXTEN CAP 10 MEQ PO SCH (10:30)
[2020-01-01] MEDS: LASIX PO SCH (10:30)
[2020-01-01] MEDS: NYSTATIN POWDER TOP SCH ×2 (10:45→20:29)
[2020-01-01] MEDS: REMDESIVIR (INVESTIGATIONAL DRUG GS-5734) 100 MG in NS 250 ML IV 250 ML IV SCH (10:58)
[2020-01-01] MEDS: ZITHROMAX INJ 500 MG VIAL 500 MG in NS 250 ML IV 250 ML IV SCH (10:59)
[2020-01-01] MEDS ORDERED: ZOLOFT PO ONE (19:50)
[2020-01-01] MEDS: ZOLOFT PO SCH (20:27)
[2020-01-01] MEDS: LIPITOR TAB 10 MG PO SCH (20:28)
[2020-01-01] MEDS: NS 1000 ML 1,000 ML IV SCH (20:28)
[2020-01-01] MEDS: MAGNESIUM SULFATE 1 GRAM/100 mL PREMIX 1 GM/100 ML BAG IV PRN ×2 (21:44→23:42)
[2020-01-02] MEDS: ZOSYN VIAL 3.375 GRAMS 3.375 G in NS 100 ML IV + SPIKE MINIBAG* 100 ML IV SCH ×3 (05:24→21:04)
[2020-01-02 05:42] LABS: BASOPHILS % (AUTO) 0.4 % (0.2-1.0); EOSINOPHILS # (AUTO) 0.1 x10^3/uL (0.0-0.2); HEMATOCRIT 32.7 % (36.0-47.0); HEMOGLOBIN 11.1 g/dL (12.0-16.0); LYMPHOCYTES # (AUTO) 0.6 X10^3/uL (1.3-2.9); LYMPHOCYTES % (AUTO) 20.5 % (21.0-51.0); MEAN CORPUSCULAR HEMOGLOBIN 30.6 pg (27.0-34.0); MEAN CORPUSCULAR HGB CONC 33.9 g/dL (33.0-35.0); MEAN CORPUSCULAR VOLUME 90.4 fL (80.0-100.0); MEAN PLATELET VOLUME 9.2 fL (7.4-11.0); MONOCYTES # (AUTO) 0.3 x10^3/uL (0.3-0.8); MONOCYTES % (AUTO) 11.3 % (0.0-13.0); NEUTROPHILS # (AUTO) 1.8 x10^3/uL (2.2-4.8); NEUTROPHILS % (AUTO) 63.8 % (42.0-75.0); PLATELET COUNT 177 X10^3/uL (150.0-450.0); RED BLOOD COUNT 3.62 X10^6/uL (3.5-5.4); RED CELL DISTRIBUTION WIDTH 14.1 % (11.6-16.5); WHITE BLOOD COUNT 2.9 X10^3/uL (3.6-10.0)
[2020-01-02 06:04] LABS: ALANINE AMINOTRANSFERASE 35 Units/L (12-78); ALBUMIN 1.8 g/dL (3.4-5.0); ALKALINE PHOSPHATASE 86 Units/L (46-116); ASPARTATE AMINO TRANSFERASE 47 Units/L (15-37); BLOOD UREA NITROGEN 16 mg/dL (7-18); CALCIUM 7.5 mg/dL (8.5-10.1); CARBON DIOXIDE 29.6 mmol/L (21-32); CHLORIDE 104 mmol/L (98-107); COR CA(FOR HYPOALB) 9.3 mg/dL (8.5-10.1); MAGNESIUM 1.8 mg/dL (1.7-2.9); SODIUM 141 mmol/L (136-145); TOTAL PROTEIN 6.3 g/dL (6.4-8.2); eGFR NON BLACK RACES 47 (>60)
[2020-01-02] MEDS: COZAAR PO SCH (08:52)
[2020-01-02] MEDS: DIFLUCAN 200 MG IV PREMIX* 200 MG/100 ML BAG IV SCH (08:52)
[2020-01-02] MEDS: LASIX PO SCH (08:52)
[2020-01-02] MEDS: ELIQUIS PO SCH ×2 (08:52→21:02)
[2020-01-02] MEDS: LOPRESSOR TAB 25 MG PO SCH ×2 (08:53→21:03)
[2020-01-02] MEDS: ZITHROMAX INJ 500 MG VIAL 500 MG in NS 250 ML IV 250 ML IV SCH (08:54)
[2020-01-02] MEDS: MICRO K EXTEN CAP 10 MEQ PO SCH (08:54)
[2020-01-02] MEDS: NYSTATIN POWDER TOP SCH ×2 (08:54→21:03)
[2020-01-02] MEDS: REMDESIVIR (INVESTIGATIONAL DRUG GS-5734) 100 MG in NS 250 ML IV 250 ML IV SCH (08:54)
[2020-01-02] MEDS: DUONEB 0.5 MG/3 MG (3 mL) NEB SCH ×4 (09:10→20:00)
--- NOTE | 2020-01-02 11:10 | RAD ---
HISTORYFollow-up COVID-19STUDYChest AP [id number]/27/2020FINDINGSPatient is rotated to the right. There is a right IJ line in good position. The heart remains enlarged. No congestive heart failure is noted. No acute infiltrates or pleural effusions are identified. Bony thorax is unremarkable.IMPRESSIONContinued cardiomegaly withou t congestive heart failureNo definite lung infiltratesElectronically signed by: LUNA WOLFE (Dec 11:10:46)
[2020-01-02] MEDS: MAGNESIUM SULFATE 1 GRAM/100 mL PREMIX 1 GM/100 ML BAG IV PRN (14:07)
[2020-01-02] MEDS: ZOFRAN INJ 4 MG VIAL IVP PRN (14:08)
[2020-01-02] MEDS: LIPITOR TAB 10 MG PO SCH (21:03)
[2020-01-02] MEDS: NS 1000 ML 1,000 ML IV SCH (21:04)
[2020-01-02] MEDS: ZOLOFT PO SCH (21:04)
[2020-01-03] MEDS: ZOSYN VIAL 3.375 GRAMS 3.375 G in NS 100 ML IV + SPIKE MINIBAG* 100 ML IV SCH ×3 (05:07→21:11)
[2020-01-03 05:54] LABS: BASOPHILS % (AUTO) 0.7 % (0.2-1.0); EOSINOPHILS # (AUTO) 0.1 x10^3/uL (0.0-0.2); EOSINOPHILS % (AUTO) 4.6 % (0.9-2.9); HEMATOCRIT 33.1 % (36.0-47.0); HEMOGLOBIN 11.2 g/dL (12.0-16.0); LYMPHOCYTES # (AUTO) 0.6 X10^3/uL (1.3-2.9); LYMPHOCYTES % (AUTO) 20.9 % (21.0-51.0); MEAN CORPUSCULAR HEMOGLOBIN 30.4 pg (27.0-34.0); MEAN CORPUSCULAR HGB CONC 33.9 g/dL (33.0-35.0); MEAN CORPUSCULAR VOLUME 89.9 fL (80.0-100.0); MEAN PLATELET VOLUME 8.8 fL (7.4-11.0); MONOCYTES # (AUTO) 0.4 x10^3/uL (0.3-0.8); NEUTROPHILS # (AUTO) 1.8 x10^3/uL (2.2-4.8); NEUTROPHILS % (AUTO) 61.8 % (42.0-75.0); PLATELET COUNT 164 X10^3/uL (150.0-450.0); RED BLOOD COUNT 3.68 X10^6/uL (3.5-5.4); RED CELL DISTRIBUTION WIDTH 14.2 % (11.6-16.5)
[2020-01-03 06:11] LABS: ALANINE AMINOTRANSFERASE 35 Units/L (12-78); ALBUMIN 1.8 g/dL (3.4-5.0); ALKALINE PHOSPHATASE 86 Units/L (46-116); ASPARTATE AMINO TRANSFERASE 41 Units/L (15-37); BLOOD UREA NITROGEN 12 mg/dL (7-18); CALCIUM 7.7 mg/dL (8.5-10.1); CARBON DIOXIDE 29.7 mmol/L (21-32); CHLORIDE 105 mmol/L (98-107); COR CA(FOR HYPOALB) 9.5 mg/dL (8.5-10.1); CREATININE 1.05 mg/dL (0.55-1.02); SODIUM 140 mmol/L (136-145); TOTAL PROTEIN 6.3 g/dL (6.4-8.2); eGFR NON BLACK RACES 54 (>60)
[2020-01-03] MEDS ORDERED: NS 250 ML IV 250 ML IV ONE (07:42)
[2020-01-03] MEDS: ZITHROMAX INJ 500 MG VIAL 500 MG in NS 250 ML IV 250 ML IV SCH (08:00)
[2020-01-03] MEDS: COZAAR PO SCH (08:59)
[2020-01-03] MEDS: LOPRESSOR TAB 25 MG PO SCH ×2 (09:00→20:38)
[2020-01-03] MEDS: ELIQUIS PO SCH ×2 (09:00→20:37)
[2020-01-03] MEDS: LASIX PO SCH (09:00)
[2020-01-03] MEDS: MICRO K EXTEN CAP 10 MEQ PO SCH (09:00)
[2020-01-03] MEDS ORDERED: MILK OF MAGNESIA PO PRN (09:00)
[2020-01-03] MEDS: NYSTATIN POWDER TOP SCH ×2 (09:01→20:38)
[2020-01-03] MEDS: REMDESIVIR (INVESTIGATIONAL DRUG GS-5734) 100 MG in NS 250 ML IV 250 ML IV SCH (09:01)
[2020-01-03] MEDS: SOLU-Medrol 40 MG VIAL IVP SCH ×3 (09:06→21:10)
[2020-01-03] MEDS: DUONEB 0.5 MG/3 MG (3 mL) NEB SCH ×4 (09:35→20:00)
[2020-01-03] MEDS: DIFLUCAN 200 MG IV PREMIX* 200 MG/100 ML BAG IV SCH (09:57)
[2020-01-03] MEDS: COLACE CAP 100 MG PO PRN (10:50)
[2020-01-03] MEDS: NS 1000 ML 1,000 ML IV SCH (20:37)
[2020-01-03] MEDS: ZOLOFT PO SCH (20:38)
[2020-01-03] MEDS: LIPITOR TAB 10 MG PO SCH (20:38)
[2020-01-04] MEDS: NORCO 10/325 TAB PO PRN (04:04)
[2020-01-04] MEDS: SOLU-Medrol 40 MG VIAL IVP SCH ×3 (05:39→21:15)
[2020-01-04] MEDS: ZOSYN VIAL 3.375 GRAMS 3.375 G in NS 100 ML IV + SPIKE MINIBAG* 100 ML IV SCH ×3 (05:40→21:15)
[2020-01-04] MEDS: NS 1000 ML 1,000 ML IV SCH ×3 (05:40→20:39)
[2020-01-04 06:13] LABS: HEMOGLOBIN 11.4 g/dL (12.0-16.0); MEAN CORPUSCULAR HEMOGLOBIN 30.4 pg (27.0-34.0); MEAN CORPUSCULAR HGB CONC 33.6 g/dL (33.0-35.0); MEAN CORPUSCULAR VOLUME 90.5 fL (80.0-100.0); MEAN PLATELET VOLUME 9.9 fL (7.4-11.0); PLATELET COUNT 172 X10^3/uL (150.0-450.0); RED BLOOD COUNT 3.76 X10^6/uL (3.5-5.4); RED CELL DISTRIBUTION WIDTH 14.3 % (11.6-16.5); WHITE BLOOD COUNT 3.6 X10^3/uL (3.6-10.0)
[2020-01-04 06:44] LABS: ALANINE AMINOTRANSFERASE 36 Units/L (12-78); ALBUMIN 1.9 g/dL (3.4-5.0); ALKALINE PHOSPHATASE 90 Units/L (46-116); ASPARTATE AMINO TRANSFERASE 33 Units/L (15-37); BLOOD UREA NITROGEN 14 mg/dL (7-18); CARBON DIOXIDE 28.6 mmol/L (21-32); CHLORIDE 104 mmol/L (98-107); COR CA(FOR HYPOALB) 9.7 mg/dL (8.5-10.1); COR NA(FOR HYPERGLY) 140 mmol/L (136-145); CREATININE 1.11 mg/dL (0.55-1.02); SODIUM 139 mmol/L (136-145); TOTAL PROTEIN 6.8 g/dL (6.4-8.2); eGFR NON BLACK RACES 51 (>60)
[2020-01-04 06:59] LABS: LYMPHOCYTES % (AUTO) 10.3 % (21.0-51.0); NEUTROPHILS % (AUTO) 87.6 % (42.0-75.0)
[2020-01-04 07:00] LABS: BASOPHILS % (AUTO) 0.1 % (0.2-1.0); LYMPHOCYTES # (AUTO) 0.4 X10^3/uL (1.3-2.9); MONOCYTES # (AUTO) 0.1 x10^3/uL (0.3-0.8); NEUTROPHILS # (AUTO) 3.2 x10^3/uL (2.2-4.8)
--- NOTE | 2020-01-04 07:06 | RAD ---
HISTORYShortness of breathSTUDYChest AP [id number]/29/2020FINDINGSPatient is rotated to the right. There is a right IJ line in good position. The heart remains enlarged. No congestive heart failure is noted. No definite acute alveol ar infiltrates or pleural effusions are identified. Bony thorax is unremarkable.IMPRESSIONNo change c ardiomegaly without congestive heart failureNo definite lung infiltrates identifiedElectronically sig peter by: LUNA WOLFE (Jan 04, 2020 07:05:47)
[2020-01-04] MEDS: COZAAR PO SCH (08:29)
[2020-01-04] MEDS: DIFLUCAN 200 MG IV PREMIX* 200 MG/100 ML BAG IV SCH (08:29)
[2020-01-04] MEDS: ELIQUIS PO SCH ×2 (08:30→20:54)
[2020-01-04] MEDS: MICRO K EXTEN CAP 10 MEQ PO SCH (08:30)
[2020-01-04] MEDS: LASIX PO SCH (08:30)
[2020-01-04] MEDS: LOPRESSOR TAB 25 MG PO SCH ×2 (08:30→20:55)
[2020-01-04] MEDS: NYSTATIN POWDER TOP SCH ×2 (08:30→20:55)
[2020-01-04] MEDS: REMDESIVIR (INVESTIGATIONAL DRUG GS-5734) 100 MG in NS 250 ML IV 250 ML IV SCH (08:31)
[2020-01-04] MEDS: DUONEB 0.5 MG/3 MG (3 mL) NEB SCH ×4 (08:45→21:37)
[2020-01-04] MEDS: ZITHROMAX INJ 500 MG VIAL 500 MG in NS 250 ML IV 250 ML IV SCH (09:45)
[2020-01-04] MEDS: ZOFRAN INJ 4 MG VIAL IVP PRN (15:48)
[2020-01-04] MEDS ORDERED: LASIX IVP SCH (17:00)
[2020-01-04] MEDS ORDERED: K-DUR TAB 20 MEQ PO SCH (17:00)
[2020-01-04] MEDS: LIPITOR TAB 10 MG PO SCH (20:55)
[2020-01-04] MEDS: ZOLOFT PO SCH (20:56)
[2020-01-05 05:24] LABS: BASOPHILS % (AUTO) 0.2 % (0.2-1.0); EOSINOPHILS % (AUTO) 0.1 % (0.9-2.9); HEMATOCRIT 34.8 % (36.0-47.0); HEMOGLOBIN 11.7 g/dL (12.0-16.0); LYMPHOCYTES # (AUTO) 0.4 X10^3/uL (1.3-2.9); LYMPHOCYTES % (AUTO) 6.4 % (21.0-51.0); MEAN CORPUSCULAR HEMOGLOBIN 30.3 pg (27.0-34.0); MEAN CORPUSCULAR HGB CONC 33.5 g/dL (33.0-35.0); MEAN CORPUSCULAR VOLUME 90.6 fL (80.0-100.0); MEAN PLATELET VOLUME 10.7 fL (7.4-11.0); MONOCYTES # (AUTO) 0.2 x10^3/uL (0.3-0.8); MONOCYTES % (AUTO) 3.4 % (0.0-13.0); NEUTROPHILS # (AUTO) 5.8 x10^3/uL (2.2-4.8); NEUTROPHILS % (AUTO) 89.9 % (42.0-75.0); PLATELET COUNT 173 X10^3/uL (150.0-450.0); RED BLOOD COUNT 3.84 X10^6/uL (3.5-5.4); RED CELL DISTRIBUTION WIDTH 14.6 % (11.6-16.5); WHITE BLOOD COUNT 6.5 X10^3/uL (3.6-10.0)
[2020-01-05 05:39] LABS: CALCIUM 8.2 mg/dL (8.5-10.1); CARBON DIOXIDE 30.1 mmol/L (21-32); COR CA(FOR HYPOALB) 9.8 mg/dL (8.5-10.1); CREATININE 1.31 mg/dL (0.55-1.02); TOTAL PROTEIN 6.9 g/dL (6.4-8.2)
[2020-01-05] MEDS: SOLU-Medrol 40 MG VIAL IVP SCH ×3 (06:11→21:09)
[2020-01-05] MEDS: ZOSYN VIAL 3.375 GRAMS 3.375 G in NS 100 ML IV + SPIKE MINIBAG* 100 ML IV SCH ×3 (06:11→21:09)
[2020-01-05] MEDS: DIFLUCAN 200 MG IV PREMIX* 200 MG/100 ML BAG IV SCH (08:52)
[2020-01-05] MEDS: LASIX PO SCH (08:53)
[2020-01-05] MEDS: COZAAR PO SCH (08:54)
[2020-01-05] MEDS: MICRO K EXTEN CAP 10 MEQ PO SCH (08:55)
[2020-01-05] MEDS: ELIQUIS PO SCH ×2 (08:56→21:08)
[2020-01-05] MEDS: NYSTATIN POWDER TOP SCH ×2 (08:57→21:09)
[2020-01-05] MEDS: LOPRESSOR TAB 25 MG PO SCH ×2 (08:57→21:08)
[2020-01-05] MEDS: DUONEB 0.5 MG/3 MG (3 mL) NEB SCH ×4 (09:00→20:00)
[2020-01-05] MEDS: ZITHROMAX INJ 500 MG VIAL 500 MG in NS 250 ML IV 250 ML IV SCH (09:10)
[2020-01-05] MEDS: NS 1000 ML 1,000 ML IV SCH (21:07)
[2020-01-05] MEDS: LIPITOR TAB 10 MG PO SCH (21:08)
[2020-01-05] MEDS: ZOLOFT PO SCH (21:08)
[2020-01-06 06:20] LABS: BASOPHILS % (AUTO) 0.2 % (0.2-1.0); HEMATOCRIT 33.8 % (36.0-47.0); HEMOGLOBIN 11.6 g/dL (12.0-16.0); LYMPHOCYTES # (AUTO) 0.4 X10^3/uL (1.3-2.9); MEAN CORPUSCULAR HEMOGLOBIN 31.2 pg (27.0-34.0); MEAN CORPUSCULAR HGB CONC 34.3 g/dL (33.0-35.0); MEAN CORPUSCULAR VOLUME 90.9 fL (80.0-100.0); MEAN PLATELET VOLUME 10.9 fL (7.4-11.0); MONOCYTES # (AUTO) 0.3 x10^3/uL (0.3-0.8); MONOCYTES % (AUTO) 4.3 % (0.0-13.0); NEUTROPHILS # (AUTO) 5.8 x10^3/uL (2.2-4.8); NEUTROPHILS % (AUTO) 89.5 % (42.0-75.0); PLATELET COUNT 192 X10^3/uL (150.0-450.0); RED BLOOD COUNT 3.72 X10^6/uL (3.5-5.4); RED CELL DISTRIBUTION WIDTH 14.2 % (11.6-16.5); WHITE BLOOD COUNT 6.5 X10^3/uL (3.6-10.0)
[2020-01-06] MEDS: SOLU-Medrol 40 MG VIAL IVP SCH ×3 (06:22→21:11)
[2020-01-06] MEDS: ZOSYN VIAL 3.375 GRAMS 3.375 G in NS 100 ML IV + SPIKE MINIBAG* 100 ML IV SCH ×3 (06:22→21:16)
[2020-01-06 06:45] LABS: ALBUMIN 2.1 g/dL (3.4-5.0); CALCIUM 8.4 mg/dL (8.5-10.1); CARBON DIOXIDE 29.2 mmol/L (21-32); COR CA(FOR HYPOALB) 9.9 mg/dL (8.5-10.1); CREATININE 1.45 mg/dL (0.55-1.02)
[2020-01-06] MEDS: DUONEB 0.5 MG/3 MG (3 mL) NEB SCH ×4 (08:55→21:10)
[2020-01-06] MEDS: DIFLUCAN 200 MG IV PREMIX* 200 MG/100 ML BAG IV SCH (09:00)
[2020-01-06] MEDS: MICRO K EXTEN CAP 10 MEQ PO SCH (09:52)
[2020-01-06] MEDS: ELIQUIS PO SCH ×2 (09:53→21:09)
[2020-01-06] MEDS: COLACE CAP 100 MG PO PRN (09:53)
[2020-01-06] MEDS: LASIX PO SCH (09:54)
[2020-01-06] MEDS: COZAAR PO SCH (09:54)
[2020-01-06] MEDS: NYSTATIN POWDER TOP SCH ×2 (09:55→21:10)
[2020-01-06] MEDS: ZITHROMAX INJ 500 MG VIAL 500 MG in NS 250 ML IV 250 ML IV SCH (09:55)
[2020-01-06] MEDS: LOPRESSOR TAB 25 MG PO SCH ×2 (10:42→21:12)
--- NOTE | 2020-01-06 11:56 | PCM.PROG ---
Progress Note Progress Note for Day of Date of Exam: 01/06/20 Subjective Subjective: Patient seen at bedside, no overnight events. Patient states she is feeling better. She is currently being treated for COVID infection along with acute renal failure, generalized weakness requiring rehab placement. Patient has been on room air and reports doing well. She still has decreased appetite and poor oral intake. She states she can eat fruits and crackers. She also had some pudding. Denies N/V/D or abdominal pain. She still has the rubio in place. She was given IV Lasix yesterday but UOP has still been less. Labs: Hgb 11.6 BUN/Cr: 25/1.45 Na:141 K: 4.7 AST/ALT: UOP: 1L, positive 1.6L balance Plan: continue current treatment with Azithromycin/Zosyn and solumedrol. C ontinue Lasix PO. Monitor UOP with rubio. Monitor AM labs. PT/OT as tolerated, will need placement to rehab. Add ensure to diet. Past Medical Family Social History Past Med/Fam/Surg Hx: No changes since H&P Allergies: Allergies No Known Drug Allergies [NKDA] Allergy (Verified 06/02/17 20:23) Review of Systems ROS: No change since H&P Vital Signs and I&O's Vital Signs: Temperature 98.6 F Pulse Rate [Left Brachial] 55 Pulse Rate 54 Respiratory Rate 20 Blood Pressure [Left Arm] 107/67 Blood Pressure [Right Arm] 126/74 Blood Pressure [Left Arm] 133/86 Blood Pressure 107/67 O2 Sat by Pulse Oximetry 100 Intake and Output: Intake & Output 01/03/20 01/04/20 01/05/20 01/06/20 23:59 23:59 23:59 23:59 Intake Total 3580 / 3580 2681 / 2681 2356 / 2356 582 / 582 Output Total 2049 1575 / 1575 950 / 950 300 / 300 Balance 1530 / 1530 1106 / 1106 1406 / 1406 282 / 282 Physical Exam Oriented: Normal Eyes: Normal Ear: Normal Nose: Normal Throat: Dry Respiratory: Generalized and Diminished Cardiovascular: Normal Auscultation: Bowel Sounds: Normal Tenderness: Normal Skin: Decreased Turgur Musculoskeletal: Right, Left, Knee, Back:Thoracic and Back:Lumbar Psychiatric: Normal Mood Description: Calm Affect: Normal Speech Pattern: Clear and Appropriate Laboratory and Diagnostics Result Diagrams: 01/06/20 04:20 01/06/20 04:20 Labs: 12/31/19 11:25 Blood Blood Culture - Final 12/31/19 11:15 Blood Blood Culture - Final Laboratory WBC 6.5 X10^3/uL (3.6-10.0) 01/06/20 04:20 RBC 3.72 X10^6/uL (3.5-5.4) 01/06/20 04:20 Hgb 11.6 g/dL (12.0-16.0) L 01/06/20 04:20 Hct 33.8 % (36.0-47.0) L 01/06/20 04:20 MCV 90.9 fL (80.0-100.0) 01/06/20 04:20 MCH 31.2 pg (27.0-34.0) 01/06/20 04:20 MCHC 34.3 g/dL (33.0-35.0) 01/06/20 04:20 RDW 14.2 % (11.6-16.5) 01/06/20 04:20 Plt Count 192 X10^3/uL (150.0-450.0) 01/06/20 04:20 MPV 10.9 fL (7.4-11.0) 01/06/20 04:20 Neut % (Auto) 89.5 % (42.0-75.0) H 01/06/20 04:20 Lymph % (Auto) 6.0 % (21.0-51.0) L 01/06/20 04:20 [place] % (Auto) 4.3 % (0.0-13.0) 01/06/20 04:20 Eos % (Auto) 0.0 % (0.9-2.9) L 01/06/20 04:20 Baso % (Auto) 0.2 % (0.2-1.0) 01/06/20 04:20 Neut # (Auto) 5.8 x10^3/uL (2.2-4.8) H 01/06/20 04:20 Lymph # (Auto) 0.4 X10^3/uL (1.3-2.9) L 01/06/20 04:20 [place] # (Auto) 0.3 x10^3/uL (0.3-0.8) 01/06/20 04:20 Eos # (Auto) 0.0 x10^3/uL (0.0-0.2) 01/06/20 04:20 Baso # (Auto) 0.0 X10^3/uL (0.0-0.1) 01/06/20 04:20 Absolute Nucleated RBC 0.1 /100WBC 01/06/20 04:20 Sample Site Rr 12/31/19 11:28 ABG pH 7.430 (7.35-7.45) 12/31/19 11:28 ABG pCO2 49.0 mmHg (35.0-45.0) H 12/31/19 11:28 ABG pO2 72.0 mmHg (80.0-100.0) L 12/31/19 11:28 ABG HCO3 32.5 mmol/L (22-26) H* 12/31/19 11:28 ABG O2 Saturation 95.0 % (90-100) 12/31/19 11:28 ABG Base Excess 7.0 mmol/L (-2.0-2.0) H 12/31/19 11:28 Faisal Test Pos 12/31/19 11:28 A-a Gradient 16.0 mmHg 12/31/19 11:28 FiO2 21.0 12/31/19 11:28 Blood Gas Comments Pt jossy well. cdn 12/31/19 11:28 Sodium 140 mmol/L (136-145) 01/06/20 04:20 Corrected Sodium 141 mmol/L (136-145) 01/06/20 04:20 Potassium 4.7 mmol/L (3.5-5.1) 01/06/20 04:20 Chloride 104 mmol/L (98-107) 01/06/20 04:20 Carbon Dioxide 29.2 mmol/L (21-32) 01/06/20 04:20 BUN 25 mg/dL (7-18) H 01/06/20 04:20 Creatinine 1.45 mg/dL (0.55-1.02) H 01/06/20 04:20 Est GFR (MDRD) Af Amer 45 (>60) L 01/06/20 04:20 Est GFR (MDRD) Non-Af 38 (>60) L 01/06/20 04:20 Glucose 133 mg/dL (65-99) H 01/06/20 04:20 Lactic Acid 0.6 mmol/L (0.4-2.0) 12/31/19 11:25 Calcium 8.4 mg/dL (8.5-10.1) L 01/06/20 04:20 Corrected Calcium 9.9 mg/dL (8.5-10.1) 01/06/20 04:20 Magnesium 1.8 mg/dL (1.7-2.9) 01/02/20 04:42 Ferritin 926 ng/mL (8-252) H 01/01/20 04:32 Total Bilirubin 0.40 mg/dL (0.2-1.0) 01/06/20 04:20 AST 20 Units/L (15-37) 01/06/20 04:20 ALT 29 Units/L (12-78) 01/06/20 04:20 Alkaline Phosphatase 89 Units/L (46-116) 01/06/20 04:20 Lactate Dehydrogenase 220 Units/L (81-234) 12/30/19 22:46 Troponin I 0.04 ng/mL (0-1.5) 12/30/19 22:46 C-Reactive Protein 32.40 mg/L (0-3.0) H 01/01/20 04:32 Total Protein 7.0 g/dL (6.4-8.2) 01/06/20 04:20 Albumin 2.1 g/dL (3.4-5.0) L 01/06/20 04:20 Globulin 4.9 g/dL (2.5-4.5) H 01/06/20 04:20 Albumin/Globulin Ratio 0.4 Ratio (1.1-2.1) L 01/06/20 04:20 Lipase 81 Units/L (73-393) 12/30/19 22:46 Specimen Type Catherized urine 12/31/19 02:50 Urine Color [place] (YELLOW) 12/31/19 02:50 Urine Appearance Clear (CLEAR) 12/31/19 02:50 Urine pH 6.0 (5.0 - 8.0) 12/31/19 02:50 Ur Specific [place] 1.015 (1.000-1.030) 12/31/19 02:50 Urine Protein 2+ (NEGATIVE) 12/31/19 02:50 Urine Glucose (UA) Negative (NEGATIVE) 12/31/19 02:50 Urine Ketones 1+ (NEGATIVE) 12/31/19 02:50 Urine Occult Blood Negative (NEGATIVE) 12/31/19 02:50 Urine Nitrite Negative (NEGATIVE) 12/31/19 02:50 Urine Bilirubin 1+ (NEGATIVE) 12/31/19 02:50 Urine Urobilinogen 3+ (NORMAL) 12/31/19 02:50 Ur Leukocyte Esterase 1+ (NEGATIVE) 12/31/19 02:50 Urine RBC 0-2 /HPF (0-3) 12/31/19 02:50 Urine WBC 0-2 /HPF (0-5) 12/31/19 02:50 Ur Squamous Epith Cells Few /HPF (NEGATIVE) 12/31/19 02:50 Urine Bacteria Trace /HPF (NEGATIVE) 12/31/19 02:50 Urine Mucus Few /HPF (NEGATIVE) 12/31/19 02:50 Urine Yeast Moderate /HPF (NEGATIVE) 12/31/19 02:50 Ur Culture Indicated? No/not indicated 12/31/19 02:50 SARS-CoV-2 (PCR) Positive (NEGATIVE) A 12/31/19 02:36 Blood Type O POSITIVE 12/31/19 10:52 Plan (1) Pneumonia: Status: Acute Qualifiers: Laterality: unspecified laterality Lung location: unspecified part of lung (2) COVID-19: Status: Acute (3) CHF (congestive heart failure): Status: Chronic Qualifiers: Heart failure chronicity: unspecified Heart failure type: unspecified Qualified Code(s): I50.9 - Heart failure, unspecified (4) GERD (gastroesophageal reflux disease): Status: Chronic Qualifiers: Esophagitis presence: esophagitis presence not specified Qualified Code(s): K21.9 - Gastro-esophageal reflux disease without esophagitis (5) Hypertension: Status: Chronic Qualifiers: Hypertension type: essential hypertension Qualified Code(s): I10 - Essential (primary) hypertension (6) Shortness of breath: Status: Acute
[2020-01-06] MEDS: LIPITOR TAB 10 MG PO SCH (21:09)
[2020-01-06] MEDS: ZOLOFT PO SCH (21:10)
[2020-01-07] MEDS: NORCO 10/325 TAB PO PRN (04:50)
[2020-01-07] MEDS: NS 1000 ML 1,000 ML IV SCH ×3 (04:51→20:22)
[2020-01-07] MEDS: SOLU-Medrol 40 MG VIAL IVP SCH ×3 (05:22→21:25)
[2020-01-07] MEDS: ZOSYN VIAL 3.375 GRAMS 3.375 G in NS 100 ML IV + SPIKE MINIBAG* 100 ML IV SCH ×3 (05:22→21:25)
[2020-01-07 05:23] LABS: CALCIUM 8.1 mg/dL (8.5-10.1); CARBON DIOXIDE 31.7 mmol/L (21-32); CREATININE 1.35 mg/dL (0.55-1.02)
[2020-01-07 05:41] LABS: BASOPHILS % (AUTO) 0.2 % (0.2-1.0); HEMOGLOBIN 11.4 g/dL (12.0-16.0); LYMPHOCYTES # (AUTO) 0.5 X10^3/uL (1.3-2.9); LYMPHOCYTES % (AUTO) 5.7 % (21.0-51.0); MEAN CORPUSCULAR HEMOGLOBIN 30.3 pg (27.0-34.0); MEAN CORPUSCULAR HGB CONC 33.6 g/dL (33.0-35.0); MEAN CORPUSCULAR VOLUME 90.1 fL (80.0-100.0); MEAN PLATELET VOLUME 10.1 fL (7.4-11.0); MONOCYTES # (AUTO) 0.4 x10^3/uL (0.3-0.8); MONOCYTES % (AUTO) 5.3 % (0.0-13.0); NEUTROPHILS # (AUTO) 7.5 x10^3/uL (2.2-4.8); NEUTROPHILS % (AUTO) 88.8 % (42.0-75.0); PLATELET COUNT 183 X10^3/uL (150.0-450.0); RED BLOOD COUNT 3.78 X10^6/uL (3.5-5.4); RED CELL DISTRIBUTION WIDTH 14.4 % (11.6-16.5); WHITE BLOOD COUNT 8.4 X10^3/uL (3.6-10.0)
[2020-01-07] MEDS: DUONEB 0.5 MG/3 MG (3 mL) NEB SCH ×4 (08:50→21:05)
[2020-01-07] MEDS ORDERED: COLACE CAP 100 MG PO ONE (09:10)
[2020-01-07] MEDS ORDERED: MILK OF MAGNESIA ONE (09:10)
[2020-01-07] MEDS: DIFLUCAN 200 MG IV PREMIX* 200 MG/100 ML BAG IV SCH (09:14)
[2020-01-07] MEDS: COZAAR PO SCH (09:14)
[2020-01-07] MEDS: COLACE CAP 100 MG PO SCH ×2 (09:14→20:23)
[2020-01-07] MEDS: LASIX PO SCH (09:15)
[2020-01-07] MEDS: LOPRESSOR TAB 25 MG PO SCH ×2 (09:15→20:24)
[2020-01-07] MEDS: ELIQUIS PO SCH ×2 (09:15→20:23)
[2020-01-07] MEDS: NYSTATIN POWDER TOP SCH ×2 (09:17→20:24)
[2020-01-07] MEDS: MILK OF MAGNESIA PO SCH ×2 (09:17→20:24)
[2020-01-07] MEDS: MICRO K EXTEN CAP 10 MEQ PO SCH (09:17)
--- NOTE | 2020-01-07 10:33 | PCM.PROG ---
Progress Note Progress Note for Day of Date of Exam: 01/07/20 Subjective Subjective: Patient seen at bedside, no overnight events. Patient states she is doing better. She is currently being treated for COVID infection along with acute renal failure, generalized weakness requiring rehab placement. Patient has been on room air and reports doing well. She reports her appetite is better, has been eating more. She has not had a BM. She did receive stool softners and laxatives. Denies N/V/D or abdominal pain. She still has the rubio in place. Her UOP is slightly better. Labs: Hgb 11.4 BUN/Cr: 28/1.35 Na:140 K: 4.6 Plan: continue current treatment with Zosyn and solumedrol. Will DC azithromycin. Continue Lasix PO. Monitor UOP with rubio. Monitor AM labs. PT/OT as tolerated, will need placement to rehab. Repeat CXR today. Past Medical Family Social History Past Med/Fam/Surg Hx: No changes since H&P Allergies: Allergies No Known Drug Allergies [NKDA] Allergy (Verified 06/02/17 20:23) Review of Systems ROS: No change since H&P Vital Signs and I&O's Vital Signs: Temperature 97.9 F Pulse Rate [Left Brachial] 51 Pulse Rate 50 Respiratory Rate 17 Blood Pressure [Left Arm] 107/67 Blood Pressure [Right Arm] 149/65 Blood Pressure [Left Arm] 133/86 Blood Pressure 107/67 O2 Sat by Pulse Oximetry 95 Intake and Output: Intake & Output 01/04/20 01/05/20 01/06/20 01/07/20 23:59 23:59 23:59 23:59 Intake Total 2681 / 2681 2356 / 2356 2831 / 2831 408 / 408 Output Total 1575 / 1575 950 / 950 1000 / 1000 200 / 200 Balance 1106 / 1106 1406 / 1406 1831 / 1831 208 / 208 Physical Exam Oriented: Normal Eyes: Normal Ear: Normal Nose: Normal Throat: Normal Respiratory: Generalized and Diminished Cardiovascular: Normal Auscultation: Bowel Sounds: Normal Tenderness: Normal Skin: Decreased Turgur Musculoskeletal: Right, Left, Knee, Back:Thoracic and Back:Lumbar Psychiatric: Normal Mood Description: Calm Affect: Normal Speech Pattern: Clear and Appropriate Laboratory and Diagnostics Result Diagrams: 01/07/20 04:25 01/07/20 04:25 Labs: 12/31/19 11:25 Blood Blood Culture - Final 12/31/19 11:15 Blood Blood Culture - Final Laboratory WBC 8.4 X10^3/uL (3.6-10.0) 01/07/20 04:25 RBC 3.78 X10^6/uL (3.5-5.4) 01/07/20 04:25 Hgb 11.4 g/dL (12.0-16.0) L 01/07/20 04:25 Hct 34.0 % (36.0-47.0) L 01/07/20 04:25 MCV 90.1 fL (80.0-100.0) 01/07/20 04:25 MCH 30.3 pg (27.0-34.0) 01/07/20 04:25 MCHC 33.6 g/dL (33.0-35.0) 01/07/20 04:25 RDW 14.4 % (11.6-16.5) 01/07/20 04:25 Plt Count 183 X10^3/uL (150.0-450.0) 01/07/20 04:25 MPV 10.1 fL (7.4-11.0) 01/07/20 04:25 Neut % (Auto) 88.8 % (42.0-75.0) H 01/07/20 04:25 Lymph % (Auto) 5.7 % (21.0-51.0) L 01/07/20 04:25 [place] % (Auto) 5.3 % (0.0-13.0) 01/07/20 04:25 Eos % (Auto) 0.0 % (0.9-2.9) L 01/07/20 04:25 Baso % (Auto) 0.2 % (0.2-1.0) 01/07/20 04:25 Neut # (Auto) 7.5 x10^3/uL (2.2-4.8) H 01/07/20 04:25 Lymph # (Auto) 0.5 X10^3/uL (1.3-2.9) L 01/07/20 04:25 [place] # (Auto) 0.4 x10^3/uL (0.3-0.8) 01/07/20 04:25 Eos # (Auto) 0.0 x10^3/uL (0.0-0.2) 01/07/20 04:25 Baso # (Auto) 0.0 X10^3/uL (0.0-0.1) 01/07/20 04:25 Absolute Nucleated RBC 0.1 /100WBC 01/07/20 04:25 Sample Site Rr 12/31/19 11:28 ABG pH 7.430 (7.35-7.45) 12/31/19 11:28 ABG pCO2 49.0 mmHg (35.0-45.0) H 12/31/19 11:28 ABG pO2 72.0 mmHg (80.0-100.0) L 12/31/19 11:28 ABG HCO3 32.5 mmol/L (22-26) H* 12/31/19 11:28 ABG O2 Saturation 95.0 % (90-100) 12/31/19 11:28 ABG Base Excess 7.0 mmol/L (-2.0-2.0) H 12/31/19 11:28 Faisal Test Pos 12/31/19 11:28 A-a Gradient 16.0 mmHg 12/31/19 11:28 FiO2 21.0 12/31/19 11:28 Blood Gas Comments Pt jossy well. cdn 12/31/19 11:28 Sodium 139 mmol/L (136-145) 01/07/20 04:25 Corrected Sodium 140 mmol/L (136-145) 01/07/20 04:25 Potassium 4.6 mmol/L (3.5-5.1) 01/07/20 04:25 Chloride 103 mmol/L (98-107) 01/07/20 04:25 Carbon Dioxide 31.7 mmol/L (21-32) 01/07/20 04:25 BUN 28 mg/dL (7-18) H 01/07/20 04:25 Creatinine 1.35 mg/dL (0.55-1.02) H 01/07/20 04:25 Est GFR (MDRD) Af Amer 49 (>60) L 01/07/20 04:25 Est GFR (MDRD) Non-Af 41 (>60) L 01/07/20 04:25 Glucose 124 mg/dL (65-99) H 01/07/20 04:25 Lactic Acid 0.6 mmol/L (0.4-2.0) 12/31/19 11:25 Calcium 8.1 mg/dL (8.5-10.1) L 01/07/20 04:25 Corrected Calcium 9.9 mg/dL (8.5-10.1) 01/06/20 04:20 Magnesium 1.8 mg/dL (1.7-2.9) 01/02/20 04:42 Ferritin 926 ng/mL (8-252) H 01/01/20 04:32 Total Bilirubin 0.40 mg/dL (0.2-1.0) 01/06/20 04:20 AST 20 Units/L (15-37) 01/06/20 04:20 ALT 29 Units/L (12-78) 01/06/20 04:20 Alkaline Phosphatase 89 Units/L (46-116) 01/06/20 04:20 Lactate Dehydrogenase 220 Units/L (81-234) 12/30/19 22:46 Troponin I 0.04 ng/mL (0-1.5) 12/30/19 22:46 C-Reactive Protein 32.40 mg/L (0-3.0) H 01/01/20 04:32 Total Protein 7.0 g/dL (6.4-8.2) 01/06/20 04:20 Albumin 2.1 g/dL (3.4-5.0) L 01/06/20 04:20 Globulin 4.9 g/dL (2.5-4.5) H 01/06/20 04:20 Albumin/Globulin Ratio 0.4 Ratio (1.1-2.1) L 01/06/20 04:20 Lipase 81 Units/L (73-393) 12/30/19 22:46 Specimen Type Catherized urine 12/31/19 02:50 Urine Color Leigh Ann (YELLOW) 12/31/19 02:50 Urine Appearance Clear (CLEAR) 12/31/19 02:50 Urine pH 6.0 (5.0 - 8.0) 12/31/19 02:50 Ur Specific [place] 1.015 (1.000-1.030) 12/31/19 02:50 Urine Protein 2+ (NEGATIVE) 12/31/19 02:50 Urine Glucose (UA) Negative (NEGATIVE) 12/31/19 02:50 Urine Ketones 1+ (NEGATIVE) 12/31/19 02:50 Urine Occult Blood Negative (NEGATIVE) 12/31/19 02:50 Urine Nitrite Negative (NEGATIVE) 12/31/19 02:50 Urine Bilirubin 1+ (NEGATIVE) 12/31/19 02:50 Urine Urobilinogen 3+ (NORMAL) 12/31/19 02:50 Ur Leukocyte Esterase 1+ (NEGATIVE) 12/31/19 02:50 Urine RBC 0-2 /HPF (0-3) 12/31/19 02:50 Urine WBC 0-2 /HPF (0-5) 12/31/19 02:50 Ur Squamous Epith Cells Few /HPF (NEGATIVE) 12/31/19 02:50 Urine Bacteria Trace /HPF (NEGATIVE) 12/31/19 02:50 Urine Mucus Few /HPF (NEGATIVE) 12/31/19 02:50 Urine Yeast Moderate /HPF (NEGATIVE) 12/31/19 02:50 Ur Culture Indicated? No/not indicated 12/31/19 02:50 SARS-CoV-2 (PCR) Positive (NEGATIVE) A 12/31/19 02:36 Blood Type O POSITIVE 12/31/19 10:52 Plan (1) Pneumonia: Status: Acute Qualifiers: Laterality: unspecified laterality Lung location: unspecified part of lung (2) COVID-19: Status: Acute (3) CHF (congestive heart failure): Status: Chronic Qualifiers: Heart failure chronicity: unspecified Heart failure type: unspecified Qualified Code(s): I50.9 - Heart failure, unspecified (4) GERD (gastroesophageal reflux disease): Status: Chronic Qualifiers: Esophagitis presence: esophagitis presence not specified Qualified Code(s): K21.9 - Gastro-esophageal reflux disease without esophagitis (5) Hypertension: Status: Chronic Qualifiers: Hypertension type: essential hypertension Qualified Code(s): I10 - Essential (primary) hypertension (6) Shortness of breath: Status: Acute
--- NOTE | 2020-01-07 12:55 | RAD ---
CHEST, 1 VIEWHistory: covid +Comparison: 01/04/2020Findings: There is stable enlargement of the cardiac silhouette. There is pulmonary vascular congestion and patchy right greater than left perihilar opacities. No significant pleural effusion is identified. Right IJ CVL terminates over the cavoatrial junction without pneumothorax.Impression:Stable cardiomegaly with pulmonary vascular congestion and patchy bilateral perihilar opacities, which could reflect edema from CHF. Superimposed pneumonia is not excluded and clinical correlation is necessary.Electronically signed by: SCOTT GARCIA (Jan 07, 2020 12:54:58)
[2020-01-07] MEDS: LIPITOR TAB 10 MG PO SCH (20:23)
[2020-01-07] MEDS: ZOLOFT PO SCH (20:24)
[2020-01-08] MEDS ORDERED: DULCOLAX SUPPOSITORY 10 MG RECTAL ONE (03:31)
[2020-01-08] MEDS ORDERED: DULCOLAX SUPPOSITORY 10 MG ONE (03:33)
[2020-01-08] MEDS: ZOSYN VIAL 3.375 GRAMS 3.375 G in NS 100 ML IV + SPIKE MINIBAG* 100 ML IV SCH ×2 (05:02→15:20)
[2020-01-08] MEDS: SOLU-Medrol 40 MG VIAL IVP SCH ×2 (05:02→15:20)
[2020-01-08 05:11] LABS: BASOPHILS % (AUTO) 0.1 % (0.2-1.0); HEMATOCRIT 36.2 % (36.0-47.0); HEMOGLOBIN 12.2 g/dL (12.0-16.0); LYMPHOCYTES # (AUTO) 0.4 X10^3/uL (1.3-2.9); LYMPHOCYTES % (AUTO) 4.5 % (21.0-51.0); MEAN CORPUSCULAR HEMOGLOBIN 30.2 pg (27.0-34.0); MEAN CORPUSCULAR HGB CONC 33.5 g/dL (33.0-35.0); MEAN PLATELET VOLUME 10.3 fL (7.4-11.0); MONOCYTES # (AUTO) 0.6 x10^3/uL (0.3-0.8); MONOCYTES % (AUTO) 6.5 % (0.0-13.0); NEUTROPHILS # (AUTO) 7.9 x10^3/uL (2.2-4.8); NEUTROPHILS % (AUTO) 88.9 % (42.0-75.0); PLATELET COUNT 188 X10^3/uL (150.0-450.0); RED BLOOD COUNT 4.03 X10^6/uL (3.5-5.4); RED CELL DISTRIBUTION WIDTH 14.5 % (11.6-16.5); WHITE BLOOD COUNT 8.9 X10^3/uL (3.6-10.0)
[2020-01-08 05:25] LABS: CALCIUM 8.5 mg/dL (8.5-10.1); CARBON DIOXIDE 32.6 mmol/L (21-32); CREATININE 1.27 mg/dL (0.55-1.02)
[2020-01-08] MEDS: COZAAR PO SCH (08:47)
[2020-01-08] MEDS: COLACE CAP 100 MG PO SCH (08:47)
[2020-01-08] MEDS: DIFLUCAN 200 MG IV PREMIX* 200 MG/100 ML BAG IV SCH (08:47)
[2020-01-08] MEDS: ELIQUIS PO SCH (08:48)
[2020-01-08] MEDS: LASIX PO SCH (08:48)
[2020-01-08] MEDS: LOPRESSOR TAB 25 MG PO SCH (08:48)
[2020-01-08] MEDS: MICRO K EXTEN CAP 10 MEQ PO SCH (08:49)
[2020-01-08] MEDS: MILK OF MAGNESIA PO SCH (08:49)
[2020-01-08] MEDS: NYSTATIN POWDER TOP SCH (08:49)
[2020-01-08] MEDS: DUONEB 0.5 MG/3 MG (3 mL) NEB SCH ×2 (09:00→11:55)
[2020-01-08 12:15] VITALS: BP 136/71
== END 2020-01-08 15:15 ==
LOC: ER 22:29 → ICU 22:29
PROVIDERS: ADMIT Internal Medicine; ATTEND Internal Medicine
DX: I48.20 Chronic atrial fibrillation, unspecified; R10.9 Unspecified abdominal pain; U07.1 COVID-19; I10 Essential (primary) hypertension; R26.81 Unsteadiness on feet; E86.0 Dehydration; I50.9 Heart failure, unspecified; I87.2 Venous insufficiency (chronic) (peripheral); K21.9 Gastro-esophageal reflux disease without esophagitis; L97.118 Non-pressure chronic ulcer of right thigh with other specified severity; N17.9 Acute kidney failure, unspecified; J12.89 Other viral pneumonia